=== PATIENT | male | born 1955 | race Caucasian/White ===

== ENCOUNTER → 2020-04-02 12:15 | Outpatient (CLI) | payer SELFPAY ==
[2020-04-02 13:51] LABS: Prostate Specific Antigen 9.28 ng/mL (0.10-4.00)
== END ==
PROVIDERS: PCP Family Medicine; Referring Provider Family Medicine; Visit Provider Family Medicine
DX: Z12.5 Encounter for screening for malignant neoplasm of prostate (principal)
CPT/HCPCS: 36415; 84153

== ENCOUNTER → 2020-06-04 10:56 | Outpatient (CLI) | payer SELFPAY ==
[2020-06-04 13:11] LABS: Prostate Specific Antigen 8.46 ng/mL (0.10-4.00)
== END ==
PROVIDERS: PCP Family Medicine; Referring Provider Physician Assistant; Visit Provider Physician Assistant
DX: R97.20 Elevated prostate specific antigen [PSA] (principal)
CPT/HCPCS: 36415; 84153

== ENCOUNTER → 2020-07-05 11:31 | Outpatient (CLI) | payer SELFPAY ==
[2020-07-05 13:18] LABS: Prostate Specific Antigen 7.52 ng/mL (0.10-4.00)
== END ==
PROVIDERS: PCP Family Medicine; Referring Provider Urology; Visit Provider Urology
DX: R97.20 Elevated prostate specific antigen [PSA] (principal)
CPT/HCPCS: 36415; 84153

== ENCOUNTER → 2020-08-01 10:35 | Outpatient (CLI) | payer SELFPAY ==
[2020-08-01 12:47] LABS: Prostate Specific Antigen 10.2 ng/mL (0.10-4.00)
== END ==
PROVIDERS: PCP Family Medicine; Referring Provider Urology; Visit Provider Urology
DX: R97.20 Elevated prostate specific antigen [PSA] (principal); N40.1 Benign prostatic hyperplasia with lower urinary tract symptoms
CPT/HCPCS: 36415; 84153

== ENCOUNTER → 2021-03-23 09:19 | Outpatient (CLI) | payer SELFPAY | PROVIDERS: PCP Family Medicine; Referring Provider Urology; Visit Provider Urology | DX: R97.20 Elevated prostate specific antigen [PSA] (principal) | CPT/HCPCS: 36415; 84153 ==

== ENCOUNTER 2021-08-11 14:18 | Emergency (ER) | payer SELFPAY ==
[2021-08-11 14:30] VITALS: BP 133/76; PULSE 93; RESP 18; TEMP 36.4; O2SAT 98; BMI 22.6
--- NOTE | 2021-08-11 17:53 | ED_ITS ---
HPI - Wound/Laceration <DARLYN Dawson - Last Filed: 08/11/21 20:48> General Chief Complaint: Wound/Laceration Stated Complaint: Left arm lac Time Seen by Provider: 08/11/21 16:53 Source: patient Mode of arrival: Ambulatory History of Present Illness HPI narrative: This is a 66-year-old male who states that he was helping a friend and on a 10 ft ladder when he fell off striking his left arm on the ground. Patient denies any head injury, loss of consciousness, pain in any other area on his body other than his left lateral forearm. Patient has a laceration which was bleeding pressure dressing came to the emergency department. He states his last tetanus vaccination was between 5 and 8 years ago, he declines wanting another tetanus vaccination today. Patient denies being on any anticoagulants, denies any vision changes, chest pain, shortness of breath pain in any other location on his body. He denies any significant medical conditions, denies any medication taken prior to arrival. Related Data Home Medications Medication Instructions Recorded Confirmed tamsulosin 0.4 mg capsule (Flomax) 0.4 mg PO DAILY 08/20/20 08/20/20 Previous Rx's Medication Instructions Recorded methocarbamol 500 mg tablet 500 mg PO BID PRN #20 tab 11/20/20 cephalexin 500 mg capsule 500 mg PO BID 5 Days #10 cap 08/11/21 methocarbamol 500 mg tablet 500 mg PO BEDTIME #10 tab 08/11/21 tramadol 50 mg tablet 50 mg PO DAILY PRN #10 tab 08/11/21 Allergies Allergy/AdvReac Type Severity Reaction Status Date / Time No Known Drug Allergies Allergy Verified 08/11/21 14:38 Review of Systems <DARLYN Dawson - Last Filed: 08/11/21 20:48> Review of Systems Narrative: General: denies fever, chills Head/Neck: denies headache, neck pain Eyes: denies visual changes, eye pain Cardio: denies chest pain, palpitations Respiratory: denies shortness of breath, cough GI: denies abdominal pain, nausea, vomiting, or diarrhea : denies dysuria, hematuria MSK: denies joint pain, muscle weakness Skin: denies rash, itching, laceration to lateral left forearm Neuro: denies numbness, tingling Patient History <DARLYN Dawson - Last Filed: 08/11/21 20:48> Medical History Acute exacerbation of chronic low back pain Surgical History Anesthesia Status post hernia repair (~1963) Family History Grandfather Brain tumor Social History marital status: household members: spouse lives independently: Yes caregiver/support person: No housing: house pets and animals: No education level: master's degree occupational status: employed current occupational exposures/hazards: No special theresa needs: No travel history: over 6 months ago leisure activities: exercise, hunting and fishing seatbelt use: always helmet use: Yes water heater temp set < 120 deg: Yes working smoke detector in home: Yes fire extinguisher in home: Yes carbon monox detector in home: Yes firearms in home: Yes firearms unloaded and locked: No do you feel safe at home: Yes Smoking Status: Never smoker second hand exposure: No alcohol intake: current substance use type: does not use during the past year weight has: remained stable well-balanced diet: daily or most days daily servings fruits/ve-4 caffeine: Yes eating out: 1-3 times/week Type(s) of exercise: walking and resistance training frequency: 5-6 times per week duration: 15-30 minutes/day Smoking Status: Never smoker alcohol intake frequency: a few times a week Substance Use Type: does not use Exam <DARLYN Dawson - Last Filed: 08/11/21 20:48> Narrative Exam Narrative: Independently reviewed vitals signs and nursing notes. General: Awake, alert, nontoxic, no cardiorespiratory distress Head/Neck: Atraumatic, neck full range of motion Eyes: EOMI, conjunctiva normal Nose: nares patent, no rhinorrhea Mouth/Throat: moist mucus membranes, no oral lesions Cardio: Regular rate and rhythm, no peripheral edema Respiratory: respirations unlabored without wheezing, stridor, or rales. No retractions. GI: Abdomen soft, nontender MSK: Moves all extremities, neurovascularly intact Skin: Normal capillary refill, no rash, left lateral forearm near his elbow has an approximate 2 cm laceration, this was irrigated with normal saline, thoroughly cleansed without any foreign debris. Structures beneath skin laceration appear intact without any laceration to muscle, tendon, or any other disruption below his skin. Bleeding is controlled with pressure otherwise slightly oozing slowly. Neuro: Normal speech and cognition, normal gait Initial Vital Signs Initial Vital Signs: Vital Signs Temperature 97.6 F 08/11/21 14:30 Pulse Rate 93 H 08/11/21 14:30 Respiratory Rate 18 08/11/21 14:30 Blood Pressure 133/76 08/11/21 14:30 Pulse Oximetry 98 08/11/21 14:30 <Loretta Jose DO - Last Filed: 08/15/21 02:40> Initial Vital Signs Initial Vital Signs: Vital Signs Temperature 97.6 F 08/11/21 14:30 Pulse Rate 93 H 08/11/21 14:30 Respiratory Rate 18 08/11/21 14:30 Blood Pressure 133/76 08/11/21 14:30 Pulse Oximetry 98 08/11/21 14:30 Procedures <DARLYN Dawson - Last Filed: 08/11/21 20:48> Laceration Repair Laceration 1: Side (If applicable): left Size (cm): 2 Description: linear Depth: simple, single layer Local Anesthetic: lidocaine 1% Amount of anesthesia used (mL): 3 Pre-repair: wound explored, irrigated extensively and deep structures intact Skin layer closed with: nylon Size (cm): 5-0 Number of sutures: 7 Technique: simple, interrupted Course <DARLYN Dawson - Last Filed: 08/11/21 20:48> Orders Ordered: Discontinued Medications Lidocaine/Sodium Bicarbonate (Lido 1%/Sod Bicarb 8.4% (10ml) 10 Ml Syringe) 10 ml INJ NOW ONE Stop: 08/11/21 16:54 Last Admin: 08/11/21 18:10 Dose: Not Given Documented by: NRHOADS Vital Signs Vital signs: Vital Signs - 8 hr 08/11/21 14:30 08/11/21 18:07 Temperature 97.6 F Pulse Rate 93 H 66 Respiratory Rate 18 16 Blood Pressure 133/76 155/84 H Pulse Oximetry 98 99 <Loretta Jose DO - Last Filed: 08/15/21 02:40> Orders Ordered: Discontinued Medications Lidocaine/Sodium Bicarbonate (Lido 1%/Sod Bicarb 8.4% (10ml) 10 Ml Syringe) 10 ml INJ NOW ONE Stop: 08/11/21 16:54 Last Admin: 08/11/21 18:10 Dose: Not Given Documented by: NRHOADS Vital Signs Vital signs: Vital Signs - 8 hr 08/11/21 14:30 08/11/21 18:07 Temperature 97.6 F Pulse Rate 93 H 66 Respiratory Rate 18 16 Blood Pressure 133/76 155/84 H Pulse Oximetry 98 99 [facility] - Wound/Laceration <DARLYN Dawson - Last Filed: 08/11/21 20:48> [facility] Narrative Medical decision making narrative: This is a 66-year-old male who presents to the emergency department for his left forearm laceration he sustained when he fell off of a ladder while he was helping a friend with some [employer] work. He states that he did not hit his head or hurt any other part of his body, he did not lose consciousness, have any nausea vomiting, he is not on anticoagulants, he has not had any vision changes or neurologic changes since his fall. He denies any sensation changes in his left arm, any wrist pain, elbow pain or shoulder pain. He has a 2 cm laceration which is linear, not contaminated with foreign debris, this was cleaned thoroughly with normal saline. Laceration repair with 5 0 Ethilon and 7 sutures was completed without any complications. Patient does not have any bleeding from site, this was dressed with a Band-Aid, bacitracin, and patient was instructed to follow-up with his primary care provider or go to the walk-in clinic for suture removal in 7 days. Patient was given a prescription for Keflex if he develops any signs and symptoms of infection including worsening pain, redness, swelling, or purulence drainage. Patient declined having a tetanus vaccination today, states his last 1 was between 5 and 8 years ago. Patient was recommended to have another tetanus vaccination within the next 2 years. Patient is appropriate and amenable to discharge home. Vital signs are stable on repeat examination is unremarkable. Patient has been informed of results. Patient has been given strict return to ER precautions for any new or worsening symptoms. Patient understands to follow up closely with outpatient providers as instructed. Patient understands plan and agrees to discharge home. All questions and concerns answered at this time. Discharge Plan Departure Patient Disposition: Home Clinical Impression: Laceration Fall Qualifiers: Encounter type: initial encounter Qualified Code(s): W19.XXXA - Unspecified fall, initial encounter Instructions: How to Care for a Laceration After Repair, DI for Laceration Repair Activity Restrictions/Additional Instructions: *You have been diagnosed with a laceration to your left arm, 7 nonabsorbable sutures were placed. Please keep this clean, covered with a Band-Aid and antibiotic ointment, and you may shower as usual morning and night. Please do not rubbed this or clean it aggressively, use a gentle soap if you use so. The skin around it is damage from the impact of the ground, this may be extra tender and have some mild swelling. If you notice any worsening redness, swelling or streaking up your arm, develop a fever, or feeling poorly, consider that this is a sign of infection, and please start taking the antibiotics. Please follow-up at the walk-in clinic, or Dr. Hall for suture removal in 7 days. Tetanus vaccinations are every 10 years, you stated that years was within the last 5 or 8, please remember to update this within the next 2 years. *What to do: *Please continue to take your regular medications as directed. [x ] New medication prescriptions sent to your pharmacy: [ [facility]] [ ] New medication written as a paper prescription [ ] No new medications given *Please follow up with your primary care provider in 2-3 days, call for an appo intment. Let them know you were seen in the Emergency Department and that we asked that you be seen for follow-up. We will electronically transmit a record of today's note if your PCP is in our system *If you do not have a primary care provider please contact [phone] to establish care with one of the [facility] primary care providers. *Return to Emergency Department if you should have any new, worsening or concerning symptoms, such as [fever greater than 101F, chills, worsening pain, persistent vomiting or other bothersome symptoms] Prescriptions: New methocarbamol 500 mg tablet 500 mg PO BEDTIME Qty: 10 0RF tramadol 50 mg tablet 50 mg PO DAILY PRN (Reason: pain) Qty: 10 0RF cephalexin 500 mg capsule 500 mg PO BID 5 Days Qty: 10 0RF No Action tamsulosin [Flomax] 0.4 mg capsule 0.4 mg PO DAILY 0RF methocarbamol 500 mg tablet 500 mg PO BID PRN (Reason: muscle pain) Qty: 20 0RF Referrals: Jessie Hall MD [Primary Care Provider] - <Loretta Jose DO - Last Filed: 08/15/21 02:40> Cosign ED Attending Cosignature Attestation: I was immediately available in the department for consultation. Documentation has been reviewed.
[2021-08-11 18:07] VITALS: BP 155/84; PULSE 66; RESP 16; O2SAT 99
[2021-08-11] MEDS: LIDOCAINE 1% (PF) 2 ML (18:11)
== END 2021-08-11 18:08 | disposition home or self-care (01) ==
PROVIDERS: Emergency Provider Nurse Practitioner Critical Care Medicine; PCP Family Medicine
DX: S51.812A Laceration without foreign body of left forearm, initial encounter (principal); W11.XXXA Fall on and from ladder, initial encounter
CPT/HCPCS: 12001; 99282; 99283

== ENCOUNTER → 2021-10-26 12:10 | Outpatient (CLI) | payer SELFPAY ==
[2021-10-27 07:38] LABS: PSA Free % 17.3 % (.); PSA, Total 9.1 ng/mL (0.0-4.0)
== END ==
PROVIDERS: PCP Family Medicine; Referring Provider Urology; Visit Provider Urology
DX: R97.20 Elevated prostate specific antigen [PSA] (principal)
CPT/HCPCS: 36415; 84153; 84154

== ENCOUNTER → 2022-10-27 07:09 | Outpatient (CLI) | payer MEDICARE, SELFPAY ==
[2022-10-27 09:50] LABS: Cholesterol 217 mg/dL (140-199); Glucose 89 mg/dL (80-110); HDL Cholesterol 50 mg/dL (40-60); LDL Cholesterol Calculated 149 mg/dL (<100); Triglycerides 90 mg/dL (35-150)
[2022-11-02 07:36] LABS: Percent Free Testosterone 2.49 % (1.50-4.20); Testosterone Free 9.27 ng/dL (5.00-21.00); Testosterone Total 372.4 ng/dL (264.0-916.0)
== END ==
PROVIDERS: PCP Family Medicine; Referring Provider Family Medicine; Visit Provider Family Medicine
DX: Z13.1 Encounter for screening for diabetes mellitus (principal); Z00.00 Encounter for general adult medical examination without abnormal findings; Z13.220 Encounter for screening for lipoid disorders; R53.83 Other fatigue
CPT/HCPCS: 36415; 80061; 82947; 84402; 84403; 87522

== ENCOUNTER → 2022-10-28 10:44 | Outpatient (CLI) | payer MEDICARE, SELFPAY ==
[2022-10-29 15:08] LABS: Fecal Immunochemical Test Negative (Negative)
== END ==
PROVIDERS: PCP Family Medicine; Referring Provider Family Medicine; Visit Provider Family Medicine
DX: Z12.11 Encounter for screening for malignant neoplasm of colon (principal)
CPT/HCPCS: 82274

== ENCOUNTER 2023-07-28 11:15 | Outpatient (RCR) | payer MEDICARE, OTHER, SELFPAY ==
--- NOTE | 2023-03-02 12:20 | PT.OPPOC ---
Physical, Occupational & Speech Therapy At [facility] Current Diagnoses Pain in unspecified shoulder (03/02/23) Visit Care Team Role Provider Type Jessie Hall MD Attending Provider Physician Family Provider Primary Care Provider Referring Provider Specialty: Family Practice Address: [address] [place] [address], [id number] Email: [email or web address] Plan Of Care PT-OP-T Assessment and Plan Start: 03/02/23 11:26 Freq: Status: Active Protocol: Document 03/02/23 12:20 AM (Rec: 03/02/23 18:03 AM [id number]) Physical Therapy Assessment Rehab Potential Rehabilitation Potential Excellent Evaluation Complexity Number of Personal Factors/Comorbidities 1-2 Number of Body Systems Impaired 1-2 Impairments Impairments Activity Tolerance,Functional Activities,Functional Mobility ,Pain,Posture,ROM,Sensation, Soft Tissue Mobility,Strength Goals Scapular strength Impairment Pt with scapular strength of 3 -/5 LT and 3+/5 MT strength Short Term Goal (STG) Pt with 3+/5 lower trap strength, 4-/5 middle trap strength STG Duration 03/23/23 Intermediate Goal (LTG) Pt with 4/5 middle trap and lower trap strength LTG Duration 04/13/23 Quick Dash Impairment Pt with Quick Dash score of 20 % Intermediate Goal (LTG) Pt with Quick Dash score of 10 % LTG Duration 04/13/23 HEP Speech And Hearing Director Goal (LTG) Pt independent with HEP. LTG Duration 04/13/23 [place] Impairment Pt unable to use bow without increase in shoulder pain. Speech And Hearing Director Goal (LTG) Pt able to use bow with proper scapulohumeral mechanics without production of increased pain. LTG Duration 04/13/23 Assessment Summary Assessment Sandip Kirkpatrick presents to PT to address R shoulder pain. Pt demonstrates good shoulder ROM, except for some limitations in horizontal adduction and IR. Pt demonstrates stiffness at posterior capsule, which improved with joint assessment of A-P GHJ mobs. Pt demonstrates difficulty with scapular stabilization in prone exercises, particularly with assessment of LT. Pt demonstrates good shoulder strength, with pain during shoulder flexion only. Pt would benefit from continued PT to improve scapulohumeral rhythm, to improve tolerance to recreational/functional tasks. Physical Therapy Plan Frequency and Duration Frequency of Treatment 2x/Week Duration of treatment (weeks) 6 Plan of Care Start Date 03/02/23 Plan of Care End Date 04/13/23 Therapeutic Interventions Therapeutic Interventions Coordination Training,Home Exercise Program,Joint Mobilizations,Manual Therapy, Neuromuscular Re-education, Patient/Caregiver Education, Self-Care/Home Management,Soft Tissue Mobilization,Taping, Therapeutic Activities, Therapeutic Exercises Modalities Cold Pack/Ice Massage,Electric Stimulation,Hot Packs, Ultrasound Next Visit Focus/Plan Next Note Type Treatment Note Next Visit Plan Assess bow hunting motion for scapular control, progress scapular stabilization strength Plan of Care Dates Plan of Care Start Date 03/02/23 Plan of Care End Date 04/13/23 Electronically Signed by: Yoli Mcnally, PT 03/03/23 [id number] If you are in agreement with this Plan of Care, please return a signed and dated copy. I have reviewed this Plan of Care and certify that the skilled therapy services above are required to meet the patient?s needs. Physician Signature Date Printed Name and Credentials Clinical Instructor Signature Printed Name and Credentials
--- NOTE | 2023-03-02 12:20 | PT.OIE ---
Current Diagnoses Pain in unspecified shoulder (03/02/23) Past Surgical History (Last Reviewed 08/11/21 @ 20:44 by Letty Ortiz COLD ROLL CATCHER) Anesthesia Status post hernia repair (~1962) Visit Care Team Role Provider Type Jessie Hall MD Attending Provider Physician Family Provider Primary Care Provider Referring Provider Specialty: Family Practice Address: [address] [place] [address], [id number] Email: [email or web address] Physical Therapy Initial Evaluation PT-OP-A Visit Information Start: 03/02/23 11:26 Freq: Status: Active Protocol: Document 03/02/23 12:20 AM (Rec: 03/02/23 18:03 AM [id number]) Out-Patient Physical Therapy Visit Information Visit Information Visit Type Initial Evaluation Visit Start Time 12:20 Visit Stop Time 13:03 Total Visit Minutes 43 Visit Number 1 Evaluation Information Evaluation Date 03/02/23 PT-OP-B Current Condition Start: 03/02/23 11:26 Freq: Status: Active Protocol: Document 03/02/23 12:20 AM (Rec: 03/02/23 18:03 AM [id number]) Current Condition History of Current Condition Onset Date 30 years ago Current Complaints R shoulder History of Current Condition Pt thinks that he tore something in his shoulder 30 years ago and never fixed it. Pt reports that he fell on his R shoulder about a year ago and it has been painful since. Pt reports that his shoulder feels weak. Pt reports that he has an independent gym program, but not sure what to do to progress his shoulder strength and mobility without increasing pain. Pt likes to bow chen, though has difficulty using his bow currently. Prior Treatments and Tests Pt had an x-ray a few years ago, pt unsure of results Prior Functional Status Baseline Function- ADL's Independent Baseline Function- Mobility Independent Current Functional Impairments (Reported) Functional Limitations- ADL's Anything above 90 degrees flexion, reaching behind back Functional Limitations- Recreation/ Pt unable to shoot a bow Hobbies properly Functional Limitations- Other Pt unable to sleep on R side secondary to pain. PT-OP-C Subjective Start: 03/02/23 11:26 Freq: Status: Active Protocol: Document 03/02/23 12:20 AM (Rec: 03/02/23 18:03 AM [id number]) Patient Questionnaires Quick Dash- Upper Extremity Quick Dash UE Score 20 Quick Dash UE Impairment 20 to 39% Impaired (Score 20- 39) OP-PT Pain Assessment Pain Assessment Grid Paper Pain Assessment Grid Completed Yes Location Right Shoulder Pain Location Details R superior shoulder, anterior upper arm Intensity 0 Scale Used Numeric (0 - 10) Description Aching,With Movement Description- Other Pt reports pain at 4/10 at worst. Frequency Daily Pain Aggravating Factors Position,ADL's,Activity, Lifting Pain Alleviating Factors Cold,Heat,Medication Other Pain Alleviating Factors ibuprofen PT-OP-K Range of Motion Start: 03/02/23 11:26 Freq: Status: Active Protocol: Document 03/02/23 12:20 AM (Rec: 03/02/23 18:03 AM [id number]) Shoulder Goniometric Range of Motion Shoulder Right Active Flexion 140 Abduction 155 Internal Rotation Behind Back (text) L1 Comments Aply ER: T1 Left Active Flexion 145 Abduction 155 Internal Rotation Behind Back (text) T9 Comments Aply ER: T5 PT-OP-L Special Tests Start: 03/02/23 11:26 Freq: Status: Active Protocol: Document 03/02/23 12:20 AM (Rec: 03/02/23 18:03 AM [id number]) Special Tests Shoulder Special Tests IR/Horizontal ADD Impingement Test Results + Empty Can Test Results negative on R PT-OP-M Strength Start: 03/02/23 11:26 Freq: Status: Active Protocol: Document 03/02/23 12:20 AM (Rec: 03/03/23 10:29 AM [id number]) Scapula Strength Scapula Manual Muscle Testing Right Comments Mid trap: 3+/5, cues to decrease UT involvement Low trap: 3-/5 PT-OP-Q Treatments Start: 03/02/23 11:26 Freq: Status: Active Protocol: Document 03/02/23 12:20 AM (Rec: 03/02/23 18:03 AM [id number]) Therapeutic Exercises Prone Exercises Low trap Side right Reps/Minutes x5 Comments poor scapulohumeral rhythm with max manual cues Shoulder extension Side right Reps/Minutes 2x10 Mid Trap Reps/Minutes x10 Sidelying Exercises ER Side right Equipment Used towel at elbow Reps/Minutes x10 Comments cues for scap stab Standing Exercises Wall slide Standing Exercise Name wall slide Side right Reps/Minutes x5 Comments pain with return, even with man scap assist and cues for SA on return Keith ER Side bilateral Resistance OTB Reps/Minutes x10 PT-OP-T Assessment and Plan Start: 03/02/23 11:26 Freq: Status: Active Protocol: Document 03/02/23 12:20 AM (Rec: 03/02/23 18:03 AM [id number]) Physical Therapy Assessment Rehab Potential Rehabilitation Potential Excellent Evaluation Complexity Number of Personal Factors/Comorbidities 1-2 Number of Body Systems Impaired 1-2 Impairments Impairments Activity Tolerance,Functional Activities,Functional Mobility ,Pain,Posture,ROM,Sensation, Soft Tissue Mobility,Strength Goals Scapular strength Impairment Pt with scapular strength of 3 -/5 LT and 3+/5 MT strength Short Term Goal (STG) Pt with 3+/5 lower trap strength, 4-/5 middle trap strength STG Duration 03/23/23 Residential Goal (LTG) Pt with 4/5 middle trap and lower trap strength LTG Duration 04/13/23 Quick Dash Impairment Pt with Quick Dash score of 20 % Residential Goal (LTG) Pt with Quick Dash score of 10 % LTG Duration 04/13/23 HEP Owner/Photographer Goal (LTG) Pt independent with HEP. LTG Duration 04/13/23 [place] Impairment Pt unable to use bow without increase in shoulder pain. Owner/Photographer Goal (LTG) Pt able to use bow with proper scapulohumeral mechanics without production of increased pain. LTG Duration 04/13/23 Assessment Summary Assessment Sandip Kirkpatrick presents to PT to address R shoulder pain. Pt demonstrates good shoulder ROM, except for some limitations in horizontal adduction and IR. Pt demonstrates stiffness at posterior capsule, which improved with joint assessment of A-P GHJ mobs. Pt demonstrates difficulty with scapular stabilization in prone exercises, particularly with assessment of LT. Pt demonstrates good shoulder strength, with pain during shoulder flexion only. Pt would benefit from continued PT to improve scapulohumeral rhythm, to improve tolerance to recreational/functional tasks. Physical Therapy Plan Frequency and Duration Frequency of Treatment 2x/Week Duration of treatment (weeks) 6 Plan of Care Start Date 03/02/23 Plan of Care End Date 04/13/23 Therapeutic Interventions Therapeutic Interventions Coordination Training,Home Exercise Program,Joint Mobilizations,Manual Therapy, Neuromuscular Re-education, Patient/Caregiver Education, Self-Care/Home Management,Soft Tissue Mobilization,Taping, Therapeutic Activities, Therapeutic Exercises Modalities Cold Pack/Ice Massage,Electric Stimulation,Hot Packs, Ultrasound Next Visit Focus/Plan Next Note Type Treatment Note Next Visit Plan Assess bow hunting motion for scapular control, progress scapular stabilization strength
--- NOTE | 2023-03-07 09:49 | PT.OTN ---
Current Diagnoses Pain in unspecified shoulder (03/07/23) Physical Therapy Treatment Note PT-OP-A Visit Information Start: 03/02/23 11:26 Freq: Status: Active Protocol: Document 03/07/23 09:49 AM (Rec: 03/07/23 11:31 AM [id number]) Out-Patient Physical Therapy Visit Information Visit Information Visit Type Treatment Note Visit Start Time 09:49 Visit Stop Time 10:31 Total Visit Minutes 42 Visit Number 2 PT-OP-B Current Condition Start: 03/02/23 11:26 Freq: Status: Active Protocol: Document 03/07/23 09:49 AM (Rec: 03/07/23 11:31 AM [id number]) Current Condition History of Current Condition Onset Date 30 years ago Current Complaints R shoulder History of Current Condition Pt thinks that he tore something in his shoulder 30 years ago and never fixed it. Pt reports that he fell on his R shoulder about a year ago and it has been painful since. Pt reports that his shoulder feels weak. Pt reports that he has an independent gym program, but not sure what to do to progress his shoulder strength and mobility without increasing pain. Pt likes to bow chen, though has difficulty using his bow currently. Prior Treatments and Tests Pt had an x-ray a few years ago, pt unsure of results PT-OP-C Subjective Start: 03/02/23 11:26 Freq: Status: Active Protocol: Document 03/02/23 12:20 AM (Rec: 03/02/23 18:03 AM [id number]) Patient Questionnaires Quick Dash- Upper Extremity Quick Dash UE Score 20 Quick Dash UE Impairment 20 to 39% Impaired (Score 20- 39) OP-PT Pain Assessment Pain Assessment Grid Paper Pain Assessment Grid Completed Yes Location Right Shoulder Pain Location Details R superior shoulder, anterior upper arm Intensity 0 Scale Used Numeric (0 - 10) Description Aching,With Movement Description- Other Pt reports pain at 4/10 at worst. Frequency Daily Pain Aggravating Factors Position,ADL's,Activity, Lifting Pain Alleviating Factors Cold,Heat,Medication Other Pain Alleviating Factors ibuprofen PT-OP-K Range of Motion Start: 03/02/23 11:26 Freq: Status: Active Protocol: Document 03/02/23 12:20 AM (Rec: 03/02/23 18:03 AM [id number]) Shoulder Goniometric Range of Motion Shoulder Right Active Flexion 140 Abduction 155 Internal Rotation Behind Back (text) L1 Comments Aply ER: T1 Left Active Flexion 145 Abduction 155 Internal Rotation Behind Back (text) T9 Comments Aply ER: T5 PT-OP-L Special Tests Start: 03/02/23 11:26 Freq: Status: Active Protocol: Document 03/02/23 12:20 AM (Rec: 03/02/23 18:03 AM [id number]) Special Tests Shoulder Special Tests IR/Horizontal ADD Impingement Test Results + Empty Can Test Results negative on R PT-OP-M Strength Start: 03/02/23 11:26 Freq: Status: Active Protocol: Document 03/02/23 12:20 AM (Rec: 03/03/23 10:29 AM [id number]) Scapula Strength Scapula Manual Muscle Testing Right Comments Mid trap: 3+/5, cues to decrease UT involvement Low trap: 3-/5 PT-OP-Q Treatments Start: 03/02/23 11:26 Freq: Status: Active Protocol: Document 03/07/23 09:49 AM (Rec: 03/07/23 11:31 AM [id number]) Therapeutic Exercises Supine Exercises Serratus punch Resistance 0-2# Reps/Minutes 2x10 Prone Exercises Shoulder extension Side right Resistance 0-2# Reps/Minutes 2x10 Comments on ball serjio UE and on table Mid Trap Equipment Used on orange [place] ball Reps/Minutes x10 Comments cues for decreased UT involvement Sidelying Exercises Flexion Side right Resistance 0-2# Reps/Minutes 2x10 Abduction Side right Resistance 0-2# Reps/Minutes 2x10 ER Side right Resistance 0-2# Equipment Used towel at elbow Reps/Minutes x10 Comments cues for scap stab Standing Exercises Wall slide Standing Exercise Name wall slide Side right Reps/Minutes x5 Comments No pain, only stiffness reported today Manual Therapy Treatment Soft Tissue Mobilization Scapular muscles Body Location R periscapular muscles, posterior deltoid Mobilization Type Myofascial Release,Trigger Point Release Intensity/Depth Moderate Body Position Sidelying Joint Mobilizations GHJ Joint S-I and A-P Grade III Body Position Supine Manual Techniques PROM Type R shoulder PROM, all directions PT-OP-T Assessment and Plan Start: 03/02/23 11:26 Freq: Status: Active Protocol: Document 03/07/23 09:49 AM (Rec: 03/07/23 11:31 AM [id number]) Physical Therapy Assessment Goals Scapular strength Impairment Pt with scapular strength of 3 -/5 LT and 3+/5 MT strength Short Term Goal (STG) Pt with 3+/5 lower trap strength, 4-/5 middle trap strength STG Duration 03/23/23 [place] Goal (LTG) Pt with 4/5 middle trap and lower trap strength LTG Duration 04/13/23 Quick Dash Impairment Pt with Quick Dash score of 20 % [facility] Goal (LTG) Pt with Quick Dash score of 10 % LTG Duration 04/13/23 HEP [place] Goal (LTG) Pt independent with HEP. LTG Duration 04/13/23 [place] Impairment Pt unable to use bow without increase in shoulder pain. [place] Goal (LTG) Pt able to use bow with proper scapulohumeral mechanics without production of increased pain. LTG Duration 04/13/23 Assessment Summary Assessment Pt tolerated PRE well today. Pt requires cueing for scapular control and decrease UT involvement with scapular training. Pt with tenderness along posterior deltoid and scapular muscles with STM. Pt with improved tolerance to wall slide today, without production of pain. Pt would benefit from continued PT to progress shoulder strength and improve scapulohumeral rhythm . Physical Therapy Plan Frequency and Duration Frequency of Treatment 2x/Week Duration of treatment (weeks) 6 Plan of Care Start Date 03/02/23 Plan of Care End Date 04/13/23 Therapeutic Interventions Therapeutic Interventions Coordination Training,Home Exercise Program,Joint Mobilizations,Manual Therapy, Neuromuscular Re-education, Patient/Caregiver Education, Self-Care/Home Management,Soft Tissue Mobilization,Taping, Therapeutic Activities, Therapeutic Exercises Modalities Cold Pack/Ice Massage,Electric Stimulation,Hot Packs, Ultrasound Next Visit Focus/Plan Next Note Type Treatment Note Next Visit Plan Assess bow hunting motion for scapular control, progress scapular stabilization strength
--- NOTE | 2023-03-07 09:49 | PT.OTN ---
Current Diagnoses Pain in unspecified shoulder (03/07/23) Physical Therapy Treatment Note PT-OP-A Visit Information Start: 03/02/23 11:26 Freq: Status: Active Protocol: Document 03/07/23 09:49 AM (Rec: 03/07/23 11:31 AM [id number]) Out-Patient Physical Therapy Visit Information Visit Information Visit Type Treatment Note Visit Start Time 09:49 Visit Stop Time 10:31 Total Visit Minutes 42 Visit Number 2 PT-OP-B Current Condition Start: 03/02/23 11:26 Freq: Status: Active Protocol: Document 03/07/23 09:49 AM (Rec: 03/07/23 11:31 AM [id number]) Current Condition History of Current Condition Onset Date 30 years ago Current Complaints R shoulder History of Current Condition Pt thinks that he tore something in his shoulder 30 years ago and never fixed it. Pt reports that he fell on his R shoulder about a year ago and it has been painful since. Pt reports that his shoulder feels weak. Pt reports that he has an independent gym program, but not sure what to do to progress his shoulder strength and mobility without increasing pain. Pt likes to bow chen, though has difficulty using his bow currently. Prior Treatments and Tests Pt had an x-ray a few years ago, pt unsure of results PT-OP-C Subjective Start: 03/02/23 11:26 Freq: Status: Active Protocol: Document 03/07/23 09:49 AM (Rec: 03/07/23 11:32 AM [id number]) OP-PT Subjective Patient Comments Patient Comments Pt reports good compliance with HEP. Pt reports that he would like to start doing more in the gym with his R UE. PT-OP-K Range of Motion Start: 03/02/23 11:26 Freq: Status: Active Protocol: Document 03/02/23 12:20 AM (Rec: 03/02/23 18:03 AM [id number]) Shoulder Goniometric Range of Motion Shoulder Right Active Flexion 140 Abduction 155 Internal Rotation Behind Back (text) L1 Comments Aply ER: T1 Left Active Flexion 145 Abduction 155 Internal Rotation Behind Back (text) T9 Comments Aply ER: T5 PT-OP-L Special Tests Start: 03/02/23 11:26 Freq: Status: Active Protocol: Document 03/02/23 12:20 AM (Rec: 03/02/23 18:03 AM [id number]) Special Tests Shoulder Special Tests IR/Horizontal ADD Impingement Test Results + Empty Can Test Results negative on R PT-OP-M Strength Start: 03/02/23 11:26 Freq: Status: Active Protocol: Document 03/02/23 12:20 AM (Rec: 03/03/23 10:29 AM [id number]) Scapula Strength Scapula Manual Muscle Testing Right Comments Mid trap: 3+/5, cues to decrease UT involvement Low trap: 3-/5 PT-OP-Q Treatments Start: 03/02/23 11:26 Freq: Status: Active Protocol: Document 03/07/23 09:49 AM (Rec: 03/07/23 11:31 AM [id number]) Therapeutic Exercises Supine Exercises Serratus punch Resistance 0-2# Reps/Minutes 2x10 Prone Exercises Shoulder extension Side right Resistance 0-2# Reps/Minutes 2x10 Comments on ball serjio UE and on table Mid Trap Equipment Used on orange [place] ball Reps/Minutes x10 Comments cues for decreased UT involvement Sidelying Exercises Flexion Side right Resistance 0-2# Reps/Minutes 2x10 Abduction Side right Resistance 0-2# Reps/Minutes 2x10 ER Side right Resistance 0-2# Equipment Used towel at elbow Reps/Minutes x10 Comments cues for scap stab Standing Exercises Wall slide Standing Exercise Name wall slide Side right Reps/Minutes x5 Comments No pain, only stiffness reported today Manual Therapy Treatment Soft Tissue Mobilization Scapular muscles Body Location R periscapular muscles, posterior deltoid Mobilization Type Myofascial Release,Trigger Point Release Intensity/Depth Moderate Body Position Sidelying Joint Mobilizations GHJ Joint S-I and A-P Grade III Body Position Supine Manual Techniques PROM Type R shoulder PROM, all directions PT-OP-T Assessment and Plan Start: 03/02/23 11:26 Freq: Status: Active Protocol: Document 03/07/23 09:49 AM (Rec: 03/07/23 11:31 AM [id number]) Physical Therapy Assessment Goals Scapular strength Impairment Pt with scapular strength of 3 -/5 LT and 3+/5 MT strength Short Term Goal (STG) Pt with 3+/5 lower trap strength, 4-/5 middle trap strength STG Duration 03/23/23 [place] Goal (LTG) Pt with 4/5 middle trap and lower trap strength LTG Duration 04/13/23 Quick Dash Impairment Pt with Quick Dash score of 20 % Income Tax Adjuster Goal (LTG) Pt with Quick Dash score of 10 % LTG Duration 04/13/23 HEP [place] Goal (LTG) Pt independent with HEP. LTG Duration 04/13/23 [place] Impairment Pt unable to use bow without increase in shoulder pain. Correction Goal (LTG) Pt able to use bow with proper scapulohumeral mechanics without production of increased pain. LTG Duration 04/13/23 Assessment Summary Assessment Pt tolerated PRE well today. Pt requires cueing for scapular control and decrease UT involvement with scapular training. Pt with tenderness along posterior deltoid and scapular muscles with STM. Pt with improved tolerance to wall slide today, without production of pain. Pt would benefit from continued PT to progress shoulder strength and improve scapulohumeral rhythm . Physical Therapy Plan Frequency and Duration Frequency of Treatment 2x/Week Duration of treatment (weeks) 6 Plan of Care Start Date 03/02/23 Plan of Care End Date 04/13/23 Therapeutic Interventions Therapeutic Interventions Coordination Training,Home Exercise Program,Joint Mobilizations,Manual Therapy, Neuromuscular Re-education, Patient/Caregiver Education, Self-Care/Home Management,Soft Tissue Mobilization,Taping, Therapeutic Activities, Therapeutic Exercises Modalities Cold Pack/Ice Massage,Electric Stimulation,Hot Packs, Ultrasound Next Visit Focus/Plan Next Note Type Treatment Note Next Visit Plan Assess bow hunting motion for scapular control, progress scapular stabilization strength
--- NOTE | 2023-03-10 09:50 | PT.OTN ---
Current Diagnoses Pain in unspecified shoulder (03/10/23) Physical Therapy Treatment Note PT-OP-A Visit Information Start: 03/02/23 11:26 Freq: Status: Active Protocol: Document 03/10/23 09:50 AM (Rec: 03/10/23 13:29 AM [id number]) Out-Patient Physical Therapy Visit Information Visit Information Visit Type Treatment Note Visit Start Time 09:52 Visit Stop Time 10:36 Total Visit Minutes 44 Visit Number 3 PT-OP-B Current Condition Start: 03/02/23 11:26 Freq: Status: Active Protocol: Document 03/07/23 09:49 AM (Rec: 03/07/23 11:31 AM [id number]) Current Condition History of Current Condition Onset Date 30 years ago Current Complaints R shoulder History of Current Condition Pt thinks that he tore something in his shoulder 30 years ago and never fixed it. Pt reports that he fell on his R shoulder about a year ago and it has been painful since. Pt reports that his shoulder feels weak. Pt reports that he has an independent gym program, but not sure what to do to progress his shoulder strength and mobility without increasing pain. Pt likes to bow chen, though has difficulty using his bow currently. Prior Treatments and Tests Pt had an x-ray a few years ago, pt unsure of results PT-OP-C Subjective Start: 03/02/23 11:26 Freq: Status: Active Protocol: Document 03/10/23 09:50 AM (Rec: 03/10/23 13:29 AM [id number]) OP-PT Subjective Patient Comments Patient Comments Pt reports good compliance with his exercises and reports that they seem to help. Pt reports that he feels that he has been able to sleep on R side more lately. PT-OP-K Range of Motion Start: 03/02/23 11:26 Freq: Status: Active Protocol: Document 03/02/23 12:20 AM (Rec: 03/02/23 18:03 AM [id number]) Shoulder Goniometric Range of Motion Shoulder Right Active Flexion 140 Abduction 155 Internal Rotation Behind Back (text) L1 Comments Aply ER: T1 Left Active Flexion 145 Abduction 155 Internal Rotation Behind Back (text) T9 Comments Aply ER: T5 PT-OP-L Special Tests Start: 03/02/23 11:26 Freq: Status: Active Protocol: Document 03/02/23 12:20 AM (Rec: 03/02/23 18:03 AM [id number]) Special Tests Shoulder Special Tests IR/Horizontal ADD Impingement Test Results + Empty Can Test Results negative on R PT-OP-M Strength Start: 03/02/23 11:26 Freq: Status: Active Protocol: Document 03/02/23 12:20 AM (Rec: 03/03/23 10:29 AM [id number]) Scapula Strength Scapula Manual Muscle Testing Right Comments Mid trap: 3+/5, cues to decrease UT involvement Low trap: 3-/5 PT-OP-Q Treatments Start: 03/02/23 11:26 Freq: Status: Active Protocol: Document 03/10/23 09:50 AM (Rec: 03/10/23 13:29 AM [id number]) Cardio Equipment Upper Body Ergometer (UBE) Duration (Minutes) 5 RPM 60 Therapeutic Exercises Sidelying Exercises Flexion Side right Resistance 2# Reps/Minutes 2x10 Abduction Side right Resistance 2-3# Reps/Minutes 2x10 ER Side right Resistance 2 Equipment Used towel at elbow Reps/Minutes 2x10 Comments cues for scap stab Standing Exercises Shoulder extension Resistance GTB Reps/Minutes 2x10 Comments tactile cueing for scapular control Standing row Resistance GTB and 2 on cable machine Reps/Minutes 2x10 ea Comments cues for scapular control and LT Shoulder IR Side right Resistance [place] TB Equipment Used towel Reps/Minutes x10 Comments cues for LT and scapular control Shoulder ER Side right Resistance [place] TB Equipment Used towel Reps/Minutes x10 Comments cues for LT and scapular control Wall slide Standing Exercise Name wall slide Side right Reps/Minutes x5 Comments No pain, only stiffness reported today Manual Therapy Treatment Soft Tissue Mobilization Scapular muscles Body Location R periscapular muscles, posterior deltoid Mobilization Type Myofascial Release,Trigger Point Release Intensity/Depth Moderate Body Position Sidelying Joint Mobilizations GHJ Joint S-I and A-P Grade III Body Position Supine Manual Techniques PROM Type R shoulder PROM, abd and flex PT-OP-T Assessment and Plan Start: 03/02/23 11:26 Freq: Status: Active Protocol: Document 03/10/23 09:50 AM (Rec: 03/10/23 13:29 AM [id number]) Physical Therapy Assessment Goals Scapular strength Impairment Pt with scapular strength of 3 -/5 LT and 3+/5 MT strength Short Term Goal (STG) Pt with 3+/5 lower trap strength, 4-/5 middle trap strength STG Duration 03/23/23 [facility] Goal (LTG) Pt with 4/5 middle trap and lower trap strength LTG Duration 04/13/23 [place] Impairment Pt with Quick Dash score of 20 % [employer]k Screen Painter Goal (LTG) Pt with Quick Dash score of 10 % LTG Duration 04/13/23 HEP [employer]ter Goal (LTG) Pt independent with HEP. LTG Duration 04/13/23 [place] Impairment Pt unable to use bow without increase in shoulder pain. [facility] Goal (LTG) Pt able to use bow with proper scapulohumeral mechanics without production of increased pain. LTG Duration 04/13/23 Assessment Summary Assessment Pt requires tactile and manual cueing for scapular control with all exercises. Pt demonstrates anterior glide of humerus, requiring cueing. Pt fatigued with rotator cuff strengthening today. Pt demonstrates continued tenderness along posterior deltoids and scapular muscles with STM. Pt would benefit from continued PT to progress shoulder mobility and strength as tolerated. Physical Therapy Plan Frequency and Duration Frequency of Treatment 2x/Week Duration of treatment (weeks) 6 Plan of Care Start Date 03/02/23 Plan of Care End Date 04/13/23 Therapeutic Interventions Therapeutic Interventions Coordination Training,Home Exercise Program,Joint Mobilizations,Manual Therapy, Neuromuscular Re-education, Patient/Caregiver Education, Self-Care/Home Management,Soft Tissue Mobilization,Taping, Therapeutic Activities, Therapeutic Exercises Modalities Cold Pack/Ice Massage,Electric Stimulation,Hot Packs, Ultrasound Next Visit Focus/Plan Next Note Type Treatment Note Next Visit Plan progress rotator cuff strength , progress scapular stabilization strength
--- NOTE | 2023-03-14 09:50 | PT.OTN ---
Current Diagnoses Pain in unspecified shoulder (03/14/23) Physical Therapy Treatment Note PT-OP-A Visit Information Start: 03/02/23 11:26 Freq: Status: Active Protocol: Document 03/14/23 09:50 AM (Rec: 03/14/23 12:24 AM [id number]) Out-Patient Physical Therapy Visit Information Visit Information Visit Type Treatment Note Visit Start Time 09:50 Visit Stop Time 10:35 Total Visit Minutes 45 Visit Number 4 PT-OP-B Current Condition Start: 03/02/23 11:26 Freq: Status: Active Protocol: Document 03/07/23 09:49 AM (Rec: 03/07/23 11:31 AM [id number]) Current Condition History of Current Condition Onset Date 30 years ago Current Complaints R shoulder History of Current Condition Pt thinks that he tore something in his shoulder 30 years ago and never fixed it. Pt reports that he fell on his R shoulder about a year ago and it has been painful since. Pt reports that his shoulder feels weak. Pt reports that he has an independent gym program, but not sure what to do to progress his shoulder strength and mobility without increasing pain. Pt likes to bow chen, though has difficulty using his bow currently. Prior Treatments and Tests Pt had an x-ray a few years ago, pt unsure of results PT-OP-C Subjective Start: 03/02/23 11:26 Freq: Status: Active Protocol: Document 03/14/23 09:50 AM (Rec: 03/14/23 12:24 AM [id number]) OP-PT Subjective Patient Comments Patient Comments Pt reports good compliance with exercises. Pt reports that the prone mid trap exercise has been a little uncomfortable. PT-OP-K Range of Motion Start: 03/02/23 11:26 Freq: Status: Active Protocol: Document 03/02/23 12:20 AM (Rec: 03/02/23 18:03 AM [id number]) Shoulder Goniometric Range of Motion Shoulder Right Active Flexion 140 Abduction 155 Internal Rotation Behind Back (text) L1 Comments Aply ER: T1 Left Active Flexion 145 Abduction 155 Internal Rotation Behind Back (text) T9 Comments Aply ER: T5 PT-OP-L Special Tests Start: 03/02/23 11:26 Freq: Status: Active Protocol: Document 03/02/23 12:20 AM (Rec: 03/02/23 18:03 AM [id number]) Special Tests Shoulder Special Tests IR/Horizontal ADD Impingement Test Results + Empty Can Test Results negative on R PT-OP-M Strength Start: 03/02/23 11:26 Freq: Status: Active Protocol: Document 03/02/23 12:20 AM (Rec: 03/03/23 10:29 AM [id number]) Scapula Strength Scapula Manual Muscle Testing Right Comments Mid trap: 3+/5, cues to decrease UT involvement Low trap: 3-/5 PT-OP-Q Treatments Start: 03/02/23 11:26 Freq: Status: Active Protocol: Document 03/14/23 09:50 AM (Rec: 03/14/23 12:24 AM [id number]) Cardio Equipment Upper Body Ergometer (UBE) Duration (Minutes) 5 RPM 60 Therapeutic Exercises Prone Exercises Mid Trap Equipment Used on orange [place] ball Reps/Minutes x10 Comments cues for decreased UT involvement Sidelying Exercises Flexion Side right Resistance 2# Reps/Minutes 2x10 Abduction Side right Resistance 3 Reps/Minutes 2x10 ER Side right Resistance 2 Equipment Used towel at elbow Reps/Minutes 2x10 Comments cues for scap stab Standing Exercises [place] stretch Standing Exercise Name [place] stretch Reps/Minutes x30 sec Comments added to HEP Shoulder extension Resistance GTB Reps/Minutes x Comments 20 Standing row Resistance GTB also 2 on cable machine in bow motion Reps/Minutes 2x10 ea Comments cues for scapular control and LT Shoulder IR Side right Resistance OTB Equipment Used towel Reps/Minutes 2x10 Comments cues for LT and scapular control Shoulder ER Side right Resistance OTB Equipment Used towel Reps/Minutes 2x10 Comments cues for LT and scapular control PT-OP-T Assessment and Plan Start: 03/02/23 11:26 Freq: Status: Active Protocol: Document 03/14/23 09:50 AM (Rec: 03/14/23 12:24 AM [id number]) Physical Therapy Assessment Goals Scapular strength Impairment Pt with scapular strength of 3 -/5 LT and 3+/5 MT strength Short Term Goal (STG) Pt with 3+/5 lower trap strength, 4-/5 middle trap strength STG Duration 03/23/23 [facility] Goal (LTG) Pt with 4/5 middle trap and lower trap strength LTG Duration 04/13/23 [place] Impairment Pt with Quick Dash score of 20 % Manager Mechanical Maintenance Goal (LTG) Pt with Quick Dash score of 10 % LTG Duration 04/13/23 HEP [facility] Goal (LTG) Pt independent with HEP. LTG Duration 04/13/23 [place] Impairment Pt unable to use bow without increase in shoulder pain. Manager Mechanical Maintenance Goal (LTG) Pt able to use bow with proper scapulohumeral mechanics without production of increased pain. LTG Duration 04/13/23 Assessment Summary Assessment Pt with improving scapular control with exercises today. Pt cued for decreased UT involvement with prone MT and with unilateral standing row. Pt with decreasing tenderness of posterior shoulder girdle musculature today. Pt demonstrates fatigue with shoulder ER strengthening. Pt would benefit from continued PT to progress shoulder girdle strength for higher level functional/recreational activities. Physical Therapy Plan Frequency and Duration Frequency of Treatment 2x/Week Duration of treatment (weeks) 6 Plan of Care Start Date 03/02/23 Plan of Care End Date 04/13/23 Therapeutic Interventions Therapeutic Interventions Coordination Training,Home Exercise Program,Joint Mobilizations,Manual Therapy, Neuromuscular Re-education, Patient/Caregiver Education, Self-Care/Home Management,Soft Tissue Mobilization,Taping, Therapeutic Activities, Therapeutic Exercises Modalities Cold Pack/Ice Massage,Electric Stimulation,Hot Packs, Ultrasound Next Visit Focus/Plan Next Note Type Treatment Note Next Visit Plan progress rotator cuff strength , progress scapular stabilization strength
--- NOTE | 2023-03-17 09:50 | PT.OTN ---
Current Diagnoses Pain in unspecified shoulder (03/17/23) Physical Therapy Treatment Note PT-OP-A Visit Information Start: 03/02/23 11:26 Freq: Status: Active Protocol: Document 03/17/23 09:50 AM (Rec: 03/17/23 10:47 AM [id number]) Out-Patient Physical Therapy Visit Information Visit Information Visit Type Treatment Note Visit Start Time 09:50 Visit Stop Time 10:35 Total Visit Minutes 45 Visit Number 5 PT-OP-B Current Condition Start: 03/02/23 11:26 Freq: Status: Active Protocol: Document 03/07/23 09:49 AM (Rec: 03/07/23 11:31 AM [id number]) Current Condition History of Current Condition Onset Date 30 years ago Current Complaints R shoulder History of Current Condition Pt thinks that he tore something in his shoulder 30 years ago and never fixed it. Pt reports that he fell on his R shoulder about a year ago and it has been painful since. Pt reports that his shoulder feels weak. Pt reports that he has an independent gym program, but not sure what to do to progress his shoulder strength and mobility without increasing pain. Pt likes to bow chen, though has difficulty using his bow currently. Prior Treatments and Tests Pt had an x-ray a few years ago, pt unsure of results PT-OP-C Subjective Start: 03/02/23 11:26 Freq: Status: Active Protocol: Document 03/17/23 09:50 AM (Rec: 03/17/23 10:47 AM [id number]) OP-PT Subjective Patient Comments Patient Comments Pt reports that he has not been to the gym since previous session, therefore has not done any of the cable exercises. PT-OP-K Range of Motion Start: 03/02/23 11:26 Freq: Status: Active Protocol: Document 03/02/23 12:20 AM (Rec: 03/02/23 18:03 AM [id number]) Shoulder Goniometric Range of Motion Shoulder Right Active Flexion 140 Abduction 155 Internal Rotation Behind Back (text) L1 Comments Aply ER: T1 Left Active Flexion 145 Abduction 155 Internal Rotation Behind Back (text) T9 Comments Aply ER: T5 PT-OP-L Special Tests Start: 03/02/23 11:26 Freq: Status: Active Protocol: Document 03/02/23 12:20 AM (Rec: 03/02/23 18:03 AM [id number]) Special Tests Shoulder Special Tests IR/Horizontal ADD Impingement Test Results + Empty Can Test Results negative on R PT-OP-M Strength Start: 03/02/23 11:26 Freq: Status: Active Protocol: Document 03/02/23 12:20 AM (Rec: 03/03/23 10:29 AM [id number]) Scapula Strength Scapula Manual Muscle Testing Right Comments Mid trap: 3+/5, cues to decrease UT involvement Low trap: 3-/5 PT-OP-Q Treatments Start: 03/02/23 11:26 Freq: Status: Active Protocol: Document 03/17/23 09:50 AM (Rec: 03/17/23 10:47 AM [id number]) Cardio Equipment Upper Body Ergometer (UBE) Duration (Minutes) 5 RPM 70 Therapeutic Exercises Prone Exercises Mid Trap Equipment Used on green [place] ball Reps/Minutes x10 Comments cues for decreased UT involvement Sidelying Exercises Sleeper stretch Reps/Minutes x30 sec Standing Exercises Standing row Resistance 1 on cable machine in bow motion Reps/Minutes 2x10 ea Comments cues for scapular control and LT Shoulder IR Side right Resistance OTB Equipment Used towel Reps/Minutes 2x10 Comments cues for LT and scapular control Shoulder ER Side right Resistance OTB Equipment Used towel Reps/Minutes 2x10 Comments cues for LT and scapular control Wall slide Standing Exercise Name Serratus wall slide Resistance [place] TB Reps/Minutes x10 Manual Therapy Treatment Soft Tissue Mobilization Scapular muscles Body Location R periscapular muscles, posterior deltoid Mobilization Type Myofascial Release,Trigger Point Release Intensity/Depth Moderate Body Position Sidelying Joint Mobilizations GHJ Joint S-I and A-P Grade III Body Position Supine Manual Techniques PROM Type R shoulder PROM all directions PT-OP-T Assessment and Plan Start: 03/02/23 11:26 Freq: Status: Active Protocol: Document 03/17/23 09:50 AM (Rec: 03/17/23 10:47 AM [id number]) Physical Therapy Assessment Goals Scapular strength Impairment Pt with scapular strength of 3 -/5 LT and 3+/5 MT strength Short Term Goal (STG) Pt with 3+/5 lower trap strength, 4-/5 middle trap strength STG Duration 03/23/23 Mcfp Goal (LTG) Pt with 4/5 middle trap and lower trap strength LTG Duration 04/13/23 Quick Dash Impairment Pt with Quick Dash score of 20 % Contract Mail Carrier Goal (LTG) Pt with Quick Dash score of 10 % LTG Duration 04/13/23 HEP Mcfp Goal (LTG) Pt independent with HEP. LTG Duration 04/13/23 [place] Impairment Pt unable to use bow without increase in shoulder pain. Contract Mail Carrier Goal (LTG) Pt able to use bow with proper scapulohumeral mechanics without production of increased pain. LTG Duration 04/13/23 Assessment Summary Assessment Pt continues to demonstrates stiffness at posterior capsule with shoulder IR. Pt with fatigue of rotator cuff with resisted shoulder ER. Pt demonstrates improving scapular control. Pt with improved range with wall slides with band facilitation of SA. Pt would benefit from continued PT to progress shoulder strength and functional mobility as tolerated. Physical Therapy Plan Frequency and Duration Frequency of Treatment 2x/Week Duration of treatment (weeks) 6 Plan of Care Start Date 03/02/23 Plan of Care End Date 04/13/23 Therapeutic Interventions Therapeutic Interventions Coordination Training,Home Exercise Program,Joint Mobilizations,Manual Therapy, Neuromuscular Re-education, Patient/Caregiver Education, Self-Care/Home Management,Soft Tissue Mobilization,Taping, Therapeutic Activities, Therapeutic Exercises Modalities Cold Pack/Ice Massage,Electric Stimulation,Hot Packs, Ultrasound Next Visit Focus/Plan Next Note Type Progress Note Next Visit Plan progress rotator cuff strength , progress scapular stabilization strength
--- NOTE | 2023-03-22 11:44 | PT.OTN ---
Current Diagnoses Pain in unspecified shoulder (03/22/23) Physical Therapy Treatment Note PT-OP-A Visit Information Start: 03/02/23 11:26 Freq: Status: Active Protocol: Document 03/22/23 09:47 [facility] (Rec: 03/22/23 10:30 SAK [id number]) Out-Patient Physical Therapy Visit Information Visit Information Visit Type Treatment Note Visit Start Time 09:47 Visit Stop Time 10:40 Total Visit Minutes 53 Visit Number 6 PT-OP-B Current Condition Start: 03/02/23 11:26 Freq: Status: Active Protocol: Document 03/07/23 09:49 AM (Rec: 03/07/23 11:31 AM [id number]) Current Condition History of Current Condition Onset Date 30 years ago Current Complaints R shoulder History of Current Condition Pt thinks that he tore something in his shoulder 30 years ago and never fixed it. Pt reports that he fell on his R shoulder about a year ago and it has been painful since. Pt reports that his shoulder feels weak. Pt reports that he has an independent gym program, but not sure what to do to progress his shoulder strength and mobility without increasing pain. Pt likes to bow chen, though has difficulty using his bow currently. Prior Treatments and Tests Pt had an x-ray a few years ago, pt unsure of results PT-OP-C Subjective Start: 03/02/23 11:26 Freq: Status: Active Protocol: Document 03/22/23 09:47 [facility] (Rec: 03/22/23 10:30 [facility] [id number]) OP-PT Subjective Patient Comments Patient Comments Has used the cables at the gym to simulate using bow. Since starting PT hasn't had to take Ibuprofen which he reports he was taking most every day. Not sure if doing exercises correctly PT-OP-K Range of Motion Start: 03/02/23 11:26 Freq: Status: Active Protocol: Document 03/02/23 12:20 AM (Rec: 03/02/23 18:03 AM [id number]) Shoulder Goniometric Range of Motion Shoulder Right Active Flexion 140 Abduction 155 Internal Rotation Behind Back (text) L1 Comments Aply ER: T1 Left Active Flexion 145 Abduction 155 Internal Rotation Behind Back (text) T9 Comments Aply ER: T5 PT-OP-L Special Tests Start: 03/02/23 11:26 Freq: Status: Active Protocol: Document 03/02/23 12:20 AM (Rec: 03/02/23 18:03 AM [id number]) Special Tests Shoulder Special Tests IR/Horizontal ADD Impingement Test Results + Empty Can Test Results negative on R PT-OP-M Strength Start: 03/02/23 11:26 Freq: Status: Active Protocol: Document 03/02/23 12:20 AM (Rec: 03/03/23 10:29 AM [id number]) Scapula Strength Scapula Manual Muscle Testing Right Comments Mid trap: 3+/5, cues to decrease UT involvement Low trap: 3-/5 PT-OP-Q Treatments Start: 03/02/23 11:26 Freq: Status: Active Protocol: Document 03/22/23 09:47 SAK (Rec: 03/22/23 10:30 SAK [id number]) Cardio Equipment Upper Body Ergometer (UBE) Duration (Minutes) 6 RPM 70 Other fwd and back Therapeutic Exercises Supine Exercises posterior capsule stretch Reps/Minutes 2x30 Comments cues for pain-free ROM, angle Prone Exercises Low trap Side right Reps/Minutes x10 Comments poor scapulohumeral rhythm with max manual cues, Shoulder extension Side right Resistance 0-2# Reps/Minutes 2x10 Comments on ball, cues for scap stab Mid Trap Equipment Used on green [place] ball Reps/Minutes x10 Comments cues for decreased UT involvement Sidelying Exercises Sleeper stretch Reps/Minutes x30 sec Flexion Side right Reps/Minutes 2x10 Comments with manual scapular mob ER Side right Resistance 2 Equipment Used towel at elbow Reps/Minutes 2x10 Comments cues for scap stab Standing Exercises Body blade Standing Exercise Name serjio front, unil f/b, IR/ER, bow motion Reps/Minutes 30 sec ea Standing row Resistance 1 on cable machine in bow motion Reps/Minutes 2x10 ea Comments verbal and manual cues for scapular control and LT Wall slide Standing Exercise Name with LT lift off Reps/Minutes x10 Manual Therapy Treatment Soft Tissue Mobilization Scapular muscles Body Location R periscapular muscles, posterior deltoid Mobilization Type Myofascial Release,Trigger Point Release Intensity/Depth Moderate Body Position Sidelying Joint Mobilizations GHJ Joint S-I and A-P Grade III Body Position Supine Manual Techniques PROM Type R shoulder PROM all directions Comments with inf GH glide with elevation PT-OP-T Assessment and Plan Start: 03/02/23 11:26 Freq: Status: Active Protocol: Document 03/22/23 09:47 DANILO (Rec: 03/22/23 10:30 [facility] [id number]) Physical Therapy Assessment Goals Scapular strength Impairment Pt with scapular strength of 3 -/5 LT and 3+/5 MT strength Short Term Goal (STG) Pt with 3+/5 lower trap strength, 4-/5 middle trap strength STG Duration 03/23/23 Erosion Control Specialist Goal (LTG) Pt with 4/5 middle trap and lower trap strength LTG Duration 04/13/23 Quick Dash Impairment Pt with Quick Dash score of 20 % Alf Goal (LTG) Pt with Quick Dash score of 10 % LTG Duration 04/13/23 HEP Erosion Control Specialist Goal (LTG) Pt independent with HEP. LTG Duration 04/13/23 [place] Impairment Pt unable to use bow without increase in shoulder pain. Alf Goal (LTG) Pt able to use bow with proper scapulohumeral mechanics without production of increased pain. LTG Duration 04/13/23 Assessment Summary Assessment Most limited with IR ROM, tight posterior capsule. Improved scapulohumeral rhythm with verbal and manual cues. Frequent excess UT recruitment, cues to inhibit, benefited from use of mirror for visual feedback. Physical Therapy Plan Frequency and Duration Frequency of Treatment 2x/Week Duration of treatment (weeks) 6 Plan of Care Start Date 03/02/23 Plan of Care End Date 04/13/23 Therapeutic Interventions Therapeutic Interventions Coordination Training,Home Exercise Program,Joint Mobilizations,Manual Therapy, Neuromuscular Re-education, Patient/Caregiver Education, Self-Care/Home Management,Soft Tissue Mobilization,Taping, Therapeutic Activities, Therapeutic Exercises Modalities Cold Pack/Ice Massage,Electric Stimulation,Hot Packs, Ultrasound Next Visit Focus/Plan Next Note Type Progress Note Next Visit Plan progress rotator cuff strength , progress scapular stabilization strength
--- NOTE | 2023-03-25 09:04 | PT.OTN ---
Current Diagnoses Pain in unspecified shoulder (03/25/23) Physical Therapy Treatment Note PT-OP-A Visit Information Start: 03/02/23 11:26 Freq: Status: Active Protocol: Document 03/25/23 09:04 AM (Rec: 03/25/23 10:58 AM [id number]) Out-Patient Physical Therapy Visit Information Visit Information Visit Type Progress Note Visit Start Time 09:04 Visit Stop Time 09:44 Total Visit Minutes 40 Visit Number 7 PT-OP-B Current Condition Start: 03/02/23 11:26 Freq: Status: Active Protocol: Document 03/07/23 09:49 AM (Rec: 03/07/23 11:31 AM [id number]) Current Condition History of Current Condition Onset Date 30 years ago Current Complaints R shoulder History of Current Condition Pt thinks that he tore something in his shoulder 30 years ago and never fixed it. Pt reports that he fell on his R shoulder about a year ago and it has been painful since. Pt reports that his shoulder feels weak. Pt reports that he has an independent gym program, but not sure what to do to progress his shoulder strength and mobility without increasing pain. Pt likes to bow chen, though has difficulty using his bow currently. Prior Treatments and Tests Pt had an x-ray a few years ago, pt unsure of results PT-OP-C Subjective Start: 03/02/23 11:26 Freq: Status: Active Protocol: Document 03/25/23 09:04 AM (Rec: 03/25/23 10:58 AM [id number]) OP-PT Subjective Patient Comments Patient Comments Pt reports that his shoulder tends to feel stiff in the morning. Pt reports that he has been doing the sidelying sleeper stretch and that seems to be helpful. PT-OP-K Range of Motion Start: 03/02/23 11:26 Freq: Status: Active Protocol: Document 03/02/23 12:20 AM (Rec: 03/02/23 18:03 AM [id number]) Shoulder Goniometric Range of Motion Shoulder Right Active Flexion 140 Abduction 155 Internal Rotation Behind Back (text) L1 Comments Aply ER: T1 Left Active Flexion 145 Abduction 155 Internal Rotation Behind Back (text) T9 Comments Aply ER: T5 PT-OP-L Special Tests Start: 03/02/23 11:26 Freq: Status: Active Protocol: Document 03/02/23 12:20 AM (Rec: 03/02/23 18:03 AM [id number]) Special Tests Shoulder Special Tests IR/Horizontal ADD Impingement Test Results + Empty Can Test Results negative on R PT-OP-M Strength Start: 03/02/23 11:26 Freq: Status: Active Protocol: Document 03/25/23 09:04 AM (Rec: 03/25/23 10:58 AM [id number]) Scapula Strength Scapula Manual Muscle Testing Right Comments MT: 4- on R LT: 3+ on R PT-OP-Q Treatments Start: 03/02/23 11:26 Freq: Status: Active Protocol: Document 03/25/23 09:04 AM (Rec: 03/25/23 10:58 AM [id number]) Cardio Equipment Upper Body Ergometer (UBE) Duration (Minutes) 6 RPM 70 Other fwd and back Gym Equipment Cable Column (Body Solid) Lat Pull Down Details To strengthen lats, used with drawing bow Resistance 30# Reps/Time x15, unilateral and bilateral Therapeutic Exercises Prone Exercises Low trap Side bilateral Reps/Minutes x10 Comments dowel in hands with shoulder ER. lift off Sidelying Exercises Flexion Side right Reps/Minutes 2x10 Comments with manual scapular mob Abduction Side right Resistance 2 Reps/Minutes 2x10 ER Side right Resistance 2 Equipment Used towel at elbow Reps/Minutes 2x10 Comments cues for scap stab Standing Exercises Standing row Resistance 1 on cable machine in bow motion Reps/Minutes 2x10 ea Comments verbal and manual cues for scapular control and LT Shoulder IR Side right Resistance OTB Equipment Used towel Reps/Minutes 2x10 Comments cues for LT and scapular control Shoulder ER Side right Resistance OTB Equipment Used towel Reps/Minutes 2x10 Comments cues for LT and scapular control Manual Therapy Treatment Soft Tissue Mobilization Scapular muscles Body Location R periscapular muscles, posterior deltoid Mobilization Type Myofascial Release,Trigger Point Release Intensity/Depth Moderate Body Position Sidelying Joint Mobilizations GHJ Joint S-I and A-P Grade III Body Position Supine Manual Techniques PROM Type R shoulder PROM all directions Comments with inf GH glide with elevation, emphasis on IR PT-OP-R Modalities Start: 03/02/23 11:26 Freq: Status: Active Protocol: Document 03/22/23 09:47 SAK (Rec: 03/22/23 11:50 SAK [id number]) Hot Pack/Cold Pack Treatment Cold Pack Location right shoulder Patient Position Hooklying Treatment Duration (minutes) 10 Patient Tolerance Good PT-OP-T Assessment and Plan Start: 03/02/23 11:26 Freq: Status: Active Protocol: Document 03/25/23 09:04 AM (Rec: 03/25/23 10:58 AM [id number]) Physical Therapy Assessment Goals Scapular strength Impairment Pt with scapular strength of 3 -/5 LT and 3+/5 MT strength Short Term Goal (STG) Pt with 3+/5 lower trap strength, 4-/5 middle trap strength. 03/25/23: Goal met STG Duration 03/23/23 [employer] Goal (LTG) Pt with 4/5 middle trap and lower trap strength LTG Duration 04/13/23 Quick Dash Impairment Pt with Quick Dash score of 20 % Supervisor [employer] Processing Goal (LTG) Pt with Quick Dash score of 10 % LTG Duration 04/13/23 HEP Supervisor [employer] Processing Goal (LTG) Pt independent with HEP. LTG Duration 04/13/23 [place] Impairment Pt unable to use bow without increase in shoulder pain. Mcc Goal (LTG) Pt able to use bow with proper scapulohumeral mechanics without production of increased pain. LTG Duration 04/13/23 Progress Towards Goals Progress Towards Goals Progressing Toward Goals Assessment Summary Assessment Pt demonstrates improving IR mobility. Pt with decreasing tenderness with STM at posterior capsule/scapular muscules. Pt demonstrates fatigue at RTC with shoulder ER stengthening. Pt would benefit from continued PT to progress scapular control and shoulder girdle strength for higher level recreational activities. Physical Therapy Plan Frequency and Duration Frequency of Treatment 2x/Week Duration of treatment (weeks) 6 Plan of Care Start Date 03/02/23 Plan of Care End Date 04/13/23 Therapeutic Interventions Therapeutic Interventions Coordination Training,Home Exercise Program,Joint Mobilizations,Manual Therapy, Neuromuscular Re-education, Patient/Caregiver Education, Self-Care/Home Management,Soft Tissue Mobilization,Taping, Therapeutic Activities, Therapeutic Exercises Modalities Cold Pack/Ice Massage,Electric Stimulation,Hot Packs, Ultrasound Next Visit Focus/Plan Next Note Type Progress Note Next Visit Plan progress rotator cuff strength , progress scapular stabilization strength
--- NOTE | 2023-04-07 10:23 | PT.OTN ---
Current Diagnoses Pain in unspecified shoulder (04/07/23) Physical Therapy Treatment Note PT-OP-A Visit Information Start: 03/02/23 11:26 Freq: Status: Active Protocol: Document 04/07/23 08:15 SAK (Rec: 04/07/23 09:00 [facility] [id number]) Out-Patient Physical Therapy Visit Information Visit Information Visit Type Treatment Note Visit Start Time 08:16 Visit Stop Time 09:10 Total Visit Minutes 54 Visit Number 8 Evaluation Information Evaluation Date 03/02/23 PT-OP-B Current Condition Start: 03/02/23 11:26 Freq: Status: Active Protocol: Document 04/07/23 08:15 SAK (Rec: 04/07/23 09:00 SAK [id number]) Current Condition History of Current Condition Onset Date 30 years ago Current Complaints R shoulder History of Current Condition Pt thinks that he tore something in his shoulder 30 years ago and never fixed it. Pt reports that he fell on his R shoulder about a year ago and it has been painful since. Pt reports that his shoulder feels weak. Pt reports that he has an independent gym program, but not sure what to do to progress his shoulder strength and mobility without increasing pain. Pt likes to bow chen, though has difficulty using his bow currently. Prior Treatments and Tests Pt had an x-ray a few years ago, pt unsure of results PT-OP-C Subjective Start: 03/02/23 11:26 Freq: Status: Active Protocol: Document 04/07/23 08:15 SAK (Rec: 04/07/23 09:00 [facility] [id number]) OP-PT Subjective Patient Comments Patient Comments Asks to review HEP to make sure doing ex correctly. Hasn 't taken any Ibuprofen recently. Fair compliance to HEP. Working on body awareness. Patient Reported Progress Improving PT-OP-K Range of Motion Start: 03/02/23 11:26 Freq: Status: Active Protocol: Document 03/02/23 12:20 AM (Rec: 03/02/23 18:03 AM [id number]) Shoulder Goniometric Range of Motion Shoulder Right Active Flexion 140 Abduction 155 Internal Rotation Behind Back (text) L1 Comments Aply ER: T1 Left Active Flexion 145 Abduction 155 Internal Rotation Behind Back (text) T9 Comments Aply ER: T5 PT-OP-L Special Tests Start: 03/02/23 11:26 Freq: Status: Active Protocol: Document 03/02/23 12:20 AM (Rec: 03/02/23 18:03 AM [id number]) Special Tests Shoulder Special Tests IR/Horizontal ADD Impingement Test Results + Empty Can Test Results negative on R PT-OP-M Strength Start: 03/02/23 11:26 Freq: Status: Active Protocol: Document 03/25/23 09:04 AM (Rec: 03/25/23 10:58 AM [id number]) Scapula Strength Scapula Manual Muscle Testing Right Comments MT: 4- on R LT: 3+ on R PT-OP-Q Treatments Start: 03/02/23 11:26 Freq: Status: Active Protocol: Document 04/07/23 08:15 SAK (Rec: 04/07/23 09:00 SAK [id number]) Gym Equipment Cable Column (Body Solid) Lat Pull Down Details To strengthen lats, used with drawing bow Resistance 30# Reps/Time x15, unilateral and bilateral Therapeutic Exercises Supine Exercises pec stretch Equipment Used foam roller Reps/Minutes 2x30 posterior capsule stretch Reps/Minutes 2x30 Comments cues for pain-free ROM, angle Serratus punch Resistance 0-2# Equipment Used foam roller Reps/Minutes 2x10 Prone Exercises Low trap Side bilateral Reps/Minutes x10 Comments dowel in hands with shoulder ER. lift off Shoulder extension Side bilateral Resistance 0-2# Reps/Minutes 2x10 Comments on ball, cues for scap stab Mid Trap Side bilateral Resistance 2# Equipment Used on green dutch ball Reps/Minutes x10 Comments cues for decreased UT involvement Sidelying Exercises Sleeper stretch Reps/Minutes x30 sec Flexion Side right Resistance 2# Reps/Minutes 2x10 Comments with manual scapular mob Abduction Side right Resistance 2 Reps/Minutes 2x10 ER Side right Resistance 2 Equipment Used towel at elbow Reps/Minutes 2x10 Comments cues for scap stab, slow speed Standing Exercises Standing row Resistance 1 on cable machine in bow motion, purple TB Reps/Minutes 2x10 ea Comments verbal and manual cues for scapular control and LT Shoulder IR Standing Exercise Name added to HEP Side right Equipment Used towel Reps/Minutes 5x10 Comments cues for LT and scapular control, compare opp side Manual Therapy Treatment Joint Mobilizations GHJ Joint S-I and A-P Grade III Body Position Supine Manual Techniques PROM Type R shoulder PROM all directions Comments with inf GH glide with elevation, emphasis on IR PT-OP-R Modalities Start: 03/02/23 11:26 Freq: Status: Active Protocol: Document 04/07/23 08:15 [facility] (Rec: 04/07/23 10:23 [facility] [id number]) Hot Pack/Cold Pack Treatment Cold Pack Location right shoulder Patient Position Hooklying Treatment Duration (minutes) 10 Patient Tolerance Good PT-OP-T Assessment and Plan Start: 03/02/23 11:26 Freq: Status: Active Protocol: Document 04/07/23 08:15 [facility] (Rec: 04/07/23 09:00 [facility] [id number]) Physical Therapy Assessment Goals Scapular strength Impairment Pt with scapular strength of 3 -/5 LT and 3+/5 MT strength Short Term Goal (STG) Pt with 3+/5 lower trap strength, 4-/5 middle trap strength. 03/25/23: Goal met STG Duration goal met Nursing Home Goal (LTG) Pt with 4/5 middle trap and lower trap strength 04/07/23: assess next session LTG Duration 04/13/23 Quick Dash Impairment Pt with Quick Dash score of 20 % Nursing Home Goal (LTG) Pt with Quick Dash score of 10 % 04/07/23: patient reporting progress, not filled out today LTG Duration 04/13/23 HEP Nursing Home Goal (LTG) Pt independent with HEP. 04/07/23: good goal progress, continue to modify and progress. REviewed current HEP today with some corrections and cues required for safe performance LTG Duration 04/13/23 [place] Impairment Pt unable to use bow without increase in shoulder pain. Nursing Home Goal (LTG) Pt able to use bow with proper scapulohumeral mechanics without production of increased pain. 04/07/23: goal progress, still some pain though decreased with simulation using weight machine and theraband. Hasn 't tried yet with actual bow LTG Duration 04/13/23 Progress Towards Goals Progress Towards Goals Progressing Toward Goals Assessment Summary Assessment REviewed current HEP per patient request with verbal and tactile cues for scapular mechanics and stabilization, added IR stretch with towel to HEP. Cues for slowed speed with strengthening exercises, paying attention to muscular activation and form. Physical Therapy Plan Frequency and Duration Frequency of Treatment 2x/Week Duration of treatment (weeks) 6 Plan of Care Start Date 03/02/23 Plan of Care End Date 04/13/23 Therapeutic Interventions Therapeutic Interventions Coordination Training,Home Exercise Program,Joint Mobilizations,Manual Therapy, Neuromuscular Re-education, Patient/Caregiver Education, Self-Care/Home Management,Soft Tissue Mobilization,Taping, Therapeutic Activities, Therapeutic Exercises Modalities Cold Pack/Ice Massage,Electric Stimulation,Hot Packs, Ultrasound Next Visit Focus/Plan Next Note Type Re-Evaluation Next Visit Plan progress rotator cuff strength , progress scapular stabilization strength emphasis on correct scapular mechanics with functional activities.
--- NOTE | 2023-04-11 12:00 | PT.OPPOC ---
Physical, Occupational & Speech Therapy At Current Diagnoses Pain in unspecified shoulder (04/11/23) Visit Care Team Role Provider Type Jessie Hall MD Attending Provider Physician Family Provider Primary Care Provider Referring Provider Specialty: Family Practice Address: [address] [place] [address], [id number] Email: [email or web address] Plan Of Care PT-OP-T Assessment and Plan Start: 03/02/23 11:26 Freq: Status: Active Protocol: Document 04/11/23 14:44 SAK (Rec: 04/17/23 14:48 SAK [id number]) Physical Therapy Assessment Goals Scapular strength Impairment Pt with scapular strength of 3 -/5 LT and 3+/5 MT strength Short Term Goal (STG) Pt with 3+/5 lower trap strength, 4-/5 middle trap strength. 03/25/23: Goal met STG Duration goal met Corner Bead Operator Goal (LTG) Pt with 4/5 middle trap and lower trap strength 04/07/23: assess next session 04/11/23: lower trap 4-/5, midle trap 4/5, good goal progress LTG Duration 04/13/23 Quick Dash Impairment Pt with Quick Dash score of 20 % Corner Bead Operator Goal (LTG) Pt with Quick Dash score of 10 % 04/07/23: patient reporting progress, not filled out today 04/11/23: Quickdash score 12%, good goal progress LTG Duration 04/13/23 HEP Corner Bead Operator Goal (LTG) Pt independent with HEP. 04/07/23: good goal progress, continue to modify and progress. REviewed current HEP today with some corrections and cues required for safe performance LTG Duration 04/13/23 [place] Impairment Pt unable to use bow without increase in shoulder pain. Care Home Goal (LTG) Pt able to use bow with proper scapulohumeral mechanics without production of increased pain. 04/07/23: goal progress, still some pain though decreased with simulation using weight machine and theraband. Hasn 't tried yet with actual bow 04/11/23: Working on good bow mechanics including use of video with DESKTOP SUPPORT SPECIALIST for shoulder protection and proper form. Needs continued work and cues LTG Duration 04/13/23 Assessment Summary Assessment Edmund is making good progress toward goals as above. Would benefit from further skilled PT to help him fully achieve his PT goals and return to prior level of function. He is highly motivated and compliant to HEP. Physical Therapy Plan Frequency and Duration Frequency of Treatment 2x/Week Duration of treatment (weeks) 6 Plan of Care Start Date 04/11/23 Plan of Care End Date 05/19/22 Therapeutic Interventions Therapeutic Interventions Coordination Training,Home Exercise Program,Joint Mobilizations,Manual Therapy, Neuromuscular Re-education, Patient/Caregiver Education, Self-Care/Home Management,Soft Tissue Mobilization,Taping, Therapeutic Activities, Therapeutic Exercises Modalities Cold Pack/Ice Massage,Electric Stimulation,Hot Packs, Ultrasound Next Visit Focus/Plan Next Note Type Re-Evaluation Next Visit Plan Continue progressive RC strengthening and scapular stabilization strengthening with emphasis on correct scapular mechanics, especially with use of bow. Plan of Care Dates Plan of Care Start Date 04/11/23 Plan of Care End Date 05/19/22 Electronically Signed by: Smita Anand, PT 04/17/23 [id number] If you are in agreement with this Plan of Care, please return a signed and dated copy. I have reviewed this Plan of Care and certify that the skilled therapy services above are required to meet the patient?s needs. Physician Signature Date Printed Name and Credentials Clinical Instructor Signature Printed Name and Credentials
--- NOTE | 2023-04-11 12:00 | PT.OTRE ---
Current Diagnoses Pain in unspecified shoulder (04/11/23) Surgical History (Last Reviewed 08/11/21 @ 20:44 by Letty Ortiz [facility]) Anesthesia Status post hernia repair (~1962) Visit Care Team Role Provider Type Jessie Hall MD Attending Provider Physician Family Provider Primary Care Provider Referring Provider Specialty: Family Practice Address: [address] [place] [address], [id number] Email: [email or web address] Physical Therapy Re-Evaluation PT-OP-A Visit Information Start: 03/02/23 11:26 Freq: Status: Active Protocol: Document 04/11/23 14:44 SAK (Rec: 04/17/23 14:48 SAK [id number]) Out-Patient Physical Therapy Visit Information Visit Information Visit Type Re-Evaluation Visit Start Time 12:00 Evaluation Information Evaluation Date 03/02/23 PT-OP-B Current Condition Start: 03/02/23 11:26 Freq: Status: Active Protocol: Document 04/11/23 14:44 SAK (Rec: 04/17/23 14:48 SAK [id number]) Current Condition History of Current Condition Onset Date 30 years ago Current Complaints R shoulder History of Current Condition Pt thinks that he tore something in his shoulder 30 years ago and never fixed it. Pt reports that he fell on his R shoulder about a year ago and it has been painful since. Pt reports that his shoulder feels weak. Pt reports that he has an independent gym program, but not sure what to do to progress his shoulder strength and mobility without increasing pain. Pt likes to bow chen, though has difficulty using his bow currently. Prior Treatments and Tests Pt had an x-ray a few years ago, pt unsure of results PT-OP-C Subjective Start: 03/02/23 11:26 Freq: Status: Active Protocol: Document 04/11/23 11:19 NBM (Rec: 04/11/23 13:06 NBM [id number]) OP-PT Subjective Patient Comments Patient Comments Edmund reports PT-OP-K Range of Motion Start: 03/02/23 11:26 Freq: Status: Active Protocol: Document 03/02/23 12:20 AM (Rec: 03/02/23 18:03 AM [id number]) Shoulder Goniometric Range of Motion Shoulder Measured in Degrees Right Active Flexion 140 Abduction 155 Internal Rotation Behind Back (text) L1 Comments Aply ER: T1 Left Active Flexion 145 Abduction 155 Internal Rotation Behind Back (text) T9 Comments Aply ER: T5 PT-OP-L Special Tests Start: 03/02/23 11:26 Freq: Status: Active Protocol: Document 03/02/23 12:20 AM (Rec: 03/02/23 18:03 AM [id number]) Special Tests Shoulder Special Tests IR/Horizontal ADD Impingement Test Results + Empty Can Test Results negative on R PT-OP-M Strength Start: 03/02/23 11:26 Freq: Status: Active Protocol: Document 03/25/23 09:04 AM (Rec: 03/25/23 10:58 AM [id number]) Scapula Strength Scapula Manual Muscle Testing Right Comments MT: 4- on R LT: 3+ on R PT-OP-Q Treatments Start: 03/02/23 11:26 Freq: Status: Active Protocol: Document 04/11/23 11:19 NBM (Rec: 04/11/23 13:06 [facility] [id number]) Gym Equipment Cable Column (Body Solid) Lat Pull Down Details To strengthen lats, used with drawing bow Resistance 30# Reps/Time x15, unilateral and bilateral Therapeutic Exercises Prone Exercises Mid Trap Side bilateral Resistance 1>2# Equipment Used on green marshallese ball Reps/Minutes x10 Comments cues for decreased UT involvement Standing Exercises Shoulder IR Standing Exercise Name added to HEP Side right Equipment Used sheet Reps/Minutes 5x10 Comments cues for LT and scapular control, compare opp side Shoulder ER Side right Resistance OTB Equipment Used towel Reps/Minutes 2x10 Comments cues for LT and scapular control PT-OP-R Modalities Start: 03/02/23 11:26 Freq: Status: Active Protocol: Document 04/11/23 11:19 NBM (Rec: 04/11/23 13:06 NB [id number]) Hot Pack/Cold Pack Treatment Cold Pack Location right shoulder Patient Position Hooklying Treatment Duration (minutes) 10 Patient Tolerance Good PT-OP-T Assessment and Plan Start: 03/02/23 11:26 Freq: Status: Active Protocol: Document 04/11/23 14:44 SAK (Rec: 04/17/23 14:48 SAK [id number]) Physical Therapy Assessment Goals Scapular strength Impairment Pt with scapular strength of 3 -/5 LT and 3+/5 MT strength Short Term Goal (STG) Pt with 3+/5 lower trap strength, 4-/5 middle trap strength. 03/25/23: Goal met STG Duration goal met Custodial Goal (LTG) Pt with 4/5 middle trap and lower trap strength 04/07/23: assess next session 04/11/23: lower trap 4-/5, midle trap 4/5, good goal progress LTG Duration 04/13/23 Quick Dash Impairment Pt with Quick Dash score of 20 % Custodial Goal (LTG) Pt with Quick Dash score of 10 % 04/07/23: patient reporting progress, not filled out today 04/11/23: Quickdash score 12%, good goal progress LTG Duration 04/13/23 HEP Environmental Health And Safety Intern Goal (LTG) Pt independent with HEP. 04/07/23: good goal progress, continue to modify and progress. REviewed current HEP today with some corrections and cues required for safe performance LTG Duration 04/13/23 [place] Impairment Pt unable to use bow without increase in shoulder pain. Environmental Health And Safety Intern Goal (LTG) Pt able to use bow with proper scapulohumeral mechanics without production of increased pain. 04/07/23: goal progress, still some pain though decreased with simulation using weight machine and theraband. Hasn 't tried yet with actual bow 04/11/23: Working on good bow mechanics including use of video with VENDING STAND SUPERVISOR for shoulder protection and proper form. Needs continued work and cues LTG Duration 04/13/23 Assessment Summary Assessment Edmund is making good progress toward goals as above. Would benefit from further skilled PT to help him fully achieve his PT goals and return to prior level of function. He is highly motivated and compliant to HEP. Physical Therapy Plan Frequency and Duration Frequency of Treatment 2x/Week Duration of treatment (weeks) 6 Plan of Care Start Date 04/11/23 Plan of Care End Date 05/19/22 Therapeutic Interventions Therapeutic Interventions Coordination Training,Home Exercise Program,Joint Mobilizations,Manual Therapy, Neuromuscular Re-education, Patient/Caregiver Education, Self-Care/Home Management,Soft Tissue Mobilization,Taping, Therapeutic Activities, Therapeutic Exercises Modalities Cold Pack/Ice Massage,Electric Stimulation,Hot Packs, Ultrasound Next Visit Focus/Plan Next Note Type Re-Evaluation Next Visit Plan Continue progressive RC strengthening and scapular stabilization strengthening with emphasis on correct scapular mechanics, especially with use of bow.
--- NOTE | 2023-04-21 17:01 | PT.OTN ---
Current Diagnoses Pain in unspecified shoulder (04/21/23) Physical Therapy Treatment Note PT-OP-A Visit Information Start: 03/02/23 11:26 Freq: Status: Active Protocol: Document 04/21/23 15:17 [facility] (Rec: 04/21/23 16:43 [facility] [id number]) Out-Patient Physical Therapy Visit Information Visit Information Visit Type Treatment Note Visit Start Time 15:17 Visit Stop Time 16:01 Total Visit Minutes 44 Visit Number 12 Number of RUBBER PRODUCTION MACHINE OPERATOR Visits 0 Evaluation Information Evaluation Date 03/02/23 PT-OP-B Current Condition Start: 03/02/23 11:26 Freq: Status: Active Protocol: Document 04/21/23 15:17 [facility] (Rec: 04/21/23 16:43 [facility] [id number]) Current Condition History of Current Condition Onset Date 30 years ago Current Complaints R shoulder History of Current Condition Pt thinks that he tore something in his shoulder 30 years ago and never fixed it. Pt reports that he fell on his R shoulder about a year ago and it has been painful since. Pt reports that his shoulder feels weak. Pt reports that he has an independent gym program, but not sure what to do to progress his shoulder strength and mobility without increasing pain. Pt likes to bow chen, though has difficulty using his bow currently. Prior Treatments and Tests Pt had an x-ray a few years ago, pt unsure of results PT-OP-C Subjective Start: 03/02/23 11:26 Freq: Status: Active Protocol: Document 04/21/23 15:17 [facility] (Rec: 04/21/23 17:01 [facility] [id number]) OP-PT Subjective Patient Comments Patient Comments Worst pain with reaching forward for phone, out to side . Overall more pain this week; not sure if doing too much or not enough. Hasn't been doing exercises on stomach; they are difficult and I don't like to stop my other exercises to do them. PT-OP-K Range of Motion Start: 03/02/23 11:26 Freq: Status: Active Protocol: Document 03/02/23 12:20 AM (Rec: 03/02/23 18:03 AM [id number]) Shoulder Goniometric Range of Motion Shoulder Right Active Flexion 140 Abduction 155 Internal Rotation Behind Back (text) L1 Comments Aply ER: T1 Left Active Flexion 145 Abduction 155 Internal Rotation Behind Back (text) T9 Comments Aply ER: T5 PT-OP-L Special Tests Start: 03/02/23 11:26 Freq: Status: Active Protocol: Document 03/02/23 12:20 AM (Rec: 03/02/23 18:03 AM [id number]) Special Tests Shoulder Special Tests IR/Horizontal ADD Impingement Test Results + Empty Can Test Results negative on R PT-OP-M Strength Start: 03/02/23 11:26 Freq: Status: Active Protocol: Document 03/25/23 09:04 AM (Rec: 03/25/23 10:58 AM [id number]) Scapula Strength Scapula Manual Muscle Testing Right Comments MT: 4- on R LT: 3+ on R PT-OP-Q Treatments Start: 03/02/23 11:26 Freq: Status: Active Protocol: Document 04/21/23 15:17 [facility] (Rec: 04/21/23 16:43 [facility] [id number]) Gym Equipment Cable Column (Body Solid) Lat Pull Down Details verbal review Therapeutic Ball pec stretch Exercise Details 65 cm ball Body Position Supine Reps/Duration 2 min Comments recommend patient get bigger ball (55 cm at home) Therapeutic Exercises Supine Exercises lat stretch Supine Exercise Name manual Reps/Minutes 2 min Comments with pin and stretch Serratus punch Resistance 2# Equipment Used foam roller Reps/Minutes 2x10 Prone Exercises Low trap Prone Exercise Name Y Side bilateral Equipment Used 65 cm ball Reps/Minutes 10x2 Shoulder extension Prone Exercise Name I Side bilateral Resistance 2# Equipment Used 65 cm ball Reps/Minutes 2x10 Mid Trap Side bilateral Resistance 2# Equipment Used 65 cm ball Reps/Minutes 2x10 Comments cues for decreased UT involvement Sidelying Exercises open book Sidelying Exercise Name added to HEP Reps/Minutes 3x Comments cues for segmental movement Self-Care/Home Management Treatment Education Other Education review technique online for shooting bow, practice in front of mirror with cues for dec shoulder elevation; patient had difficulty self- correcting but was able to see errors in his form PT-OP-R Modalities Start: 03/02/23 11:26 Freq: Status: Active Protocol: Document 04/11/23 11:19 [facility] (Rec: 04/11/23 13:06 [facility] [id number]) Hot Pack/Cold Pack Treatment Cold Pack Location right shoulder Patient Position Hooklying Treatment Duration (minutes) 10 Patient Tolerance Good PT-OP-T Assessment and Plan Start: 03/02/23 11:26 Freq: Status: Active Protocol: Document 04/21/23 15:17 [facility] (Rec: 04/21/23 16:43 [facility] [id number]) Physical Therapy Assessment Goals Scapular strength Impairment Pt with scapular strength of 3 -/5 LT and 3+/5 MT strength Short Term Goal (STG) Pt with 3+/5 lower trap strength, 4-/5 middle trap strength. 03/25/23: Goal met STG Duration goal met Plasterer Stucco Goal (LTG) Pt with 4/5 middle trap and lower trap strength 04/07/23: assess next session 04/11/23: lower trap 4-/5, midle trap 4/5, good goal progress LTG Duration 05/1123 Quick Dash Impairment Pt with Quick Dash score of 20 % Plasterer Stucco Goal (LTG) Pt with Quick Dash score of 10 % 04/07/23: patient reporting progress, not filled out today 04/11/23: Quickdash score 12%, good goal progress LTG Duration 05/19/23 HEP Long-Term Goal (LTG) Pt independent with HEP. 04/07/23: good goal progress, continue to modify and progress. REviewed current HEP today with some corrections and cues required for safe performance LTG Duration 05/19/23 [place] Impairment Pt unable to use bow without increase in shoulder pain. Plasterer Stucco Goal (LTG) Pt able to use bow with proper scapulohumeral mechanics without production of increased pain. 04/07/23: goal progress, still some pain though decreased with simulation using weight machine and theraband. Hasn 't tried yet with actual bow 04/11/23: Working on good bow mechanics including use of video with RUBBER PRODUCTION MACHINE OPERATOR for shoulder protection and proper form. Needs continued work and cues LTG Duration 05/19/23 Progress Towards Goals Progress Towards Goals Progressing Toward Goals Assessment Summary Assessment Pt has made some goal progress , modified HEP today and did further work on patient education regarding faulty mechanics on shooting bow which may be contributing to his pain; practice with visual feedback in front of mirror helpful in him seeing faulty mechanics. Needs further work on flexibility, strengthening , functional retraining to help him fully achieve his PT goals and return to prior level of function Physical Therapy Plan Frequency and Duration Frequency of Treatment 2x/Week Duration of treatment (weeks) 6 Plan of Care Start Date 04/11/23 Plan of Care End Date 05/19/22 Therapeutic Interventions Therapeutic Interventions Coordination Training,Home Exercise Program,Joint Mobilizations,Manual Therapy, Neuromuscular Re-education, Patient/Caregiver Education, Self-Care/Home Management,Soft Tissue Mobilization,Taping, Therapeutic Activities, Therapeutic Exercises Modalities Cold Pack/Ice Massage,Electric Stimulation,Hot Packs, Ultrasound Next Visit Focus/Plan Next Note Type Treatment Note Next Visit Plan Continue progressive RC strengthening and scapular stabilization strengthening with emphasis on correct scapular mechanics, especially with use of bow.
--- NOTE | 2023-05-10 10:17 | PT-OP ANOTE ---
Called pt re: missed 9:45a appointment which pt advised he had responded 05/07 to text appt reminder to cancel. He confirms next appt 05/12. Lith[employer] Press Fe[employer] Scheduling notified and confirms pt had text 05/07 to cancel 05/10 appt and they will update from No Show to Cancelled accordingly.
--- NOTE | 2023-05-12 08:33 | PT.OTN ---
Current Diagnoses Pain in unspecified shoulder (05/12/23) Physical Therapy Treatment Note PT-OP-A Visit Information Start: 03/02/23 11:26 Freq: Status: Active Protocol: Document 05/12/23 09:41 [facility] (Rec: 05/12/23 10:32 [facility] [id number]) Out-Patient Physical Therapy Visit Information Visit Information Visit Type Treatment Note Visit Start Time 09:45 Visit Stop Time 10:30 Total Visit Minutes 45 Visit Number 13 Evaluation Information Evaluation Date 03/02/23 PT-OP-B Current Condition Start: 03/02/23 11:26 Freq: Status: Active Protocol: Document 05/12/23 09:41 [facility] (Rec: 05/12/23 10:32 [facility] [id number]) Current Condition History of Current Condition Onset Date 30 years ago Current Complaints R shoulder History of Current Condition Pt thinks that he tore something in his shoulder 30 years ago and never fixed it. Pt reports that he fell on his R shoulder about a year ago and it has been painful since. Pt reports that his shoulder feels weak. Pt reports that he has an independent gym program, but not sure what to do to progress his shoulder strength and mobility without increasing pain. Pt likes to bow chen, though has difficulty using his bow currently. Prior Treatments and Tests Pt had an x-ray a few years ago, pt unsure of results PT-OP-C Subjective Start: 03/02/23 11:26 Freq: Status: Active Protocol: Document 05/12/23 09:41 [facility] (Rec: 05/12/23 10:32 [facility] [id number]) OP-PT Subjective Patient Comments Patient Comments Hasn't had much pain in shoulder, but has in muscle around shoulder blade. Patient reports hasn't been compliant to HEP during the holidays. right shoulder most painful when laying on left side, is better able to lay on right side. PT-OP-K Range of Motion Start: 03/02/23 11:26 Freq: Status: Active Protocol: Document 03/02/23 12:20 AM (Rec: 03/02/23 18:03 AM [id number]) Shoulder Goniometric Range of Motion Shoulder Right Active Flexion 140 Abduction 155 Internal Rotation Behind Back (text) L1 Comments Aply ER: T1 Left Active Flexion 145 Abduction 155 Internal Rotation Behind Back (text) T9 Comments Aply ER: T5 PT-OP-L Special Tests Start: 03/02/23 11:26 Freq: Status: Active Protocol: Document 03/02/23 12:20 AM (Rec: 03/02/23 18:03 AM [id number]) Special Tests Shoulder Special Tests IR/Horizontal ADD Impingement Test Results + Empty Can Test Results negative on R PT-OP-M Strength Start: 03/02/23 11:26 Freq: Status: Active Protocol: Document 03/25/23 09:04 AM (Rec: 03/25/23 10:58 AM [id number]) Scapula Strength Scapula Manual Muscle Testing Right Comments MT: 4- on R LT: 3+ on R PT-OP-Q Treatments Start: 03/02/23 11:26 Freq: Status: Active Protocol: Document 05/12/23 09:41 [facility] (Rec: 05/12/23 10:32 [facility] [id number]) Cardio Equipment Upper Body Ergometer (UBE) Duration (Minutes) 6 RPM 100 Seat Position 11 Height 2.5 Other fwd and back Therapeutic Exercises Prone Exercises Low trap Prone Exercise Name Y Side bilateral Resistance 1# Equipment Used 65 cm ball Reps/Minutes 10x2 Shoulder extension Prone Exercise Name I Side bilateral Resistance 2# Equipment Used 65 cm ball Reps/Minutes 2x10 Comments cues for straight out, scap engagement Mid Trap Side bilateral Resistance 2# Equipment Used 65 cm ball Reps/Minutes 2x10 Comments cues for decreased UT involvement Sidelying Exercises open book Reps/Minutes 3x Comments cues for segmental movement Manual Therapy Treatment Other Other Manual Treatments MMT, ROM testing right shoulder Self-Care/Home Management Treatment Education Other Education use of tennis/raquetball, Theracane for self massage PT-OP-R Modalities Start: 03/02/23 11:26 Freq: Status: Active Protocol: Document 04/11/23 11:19 [facility] (Rec: 04/11/23 13:06 [facility] [id number]) Hot Pack/Cold Pack Treatment Cold Pack Location right shoulder Patient Position Hooklying Treatment Duration (minutes) 10 Patient Tolerance Good PT-OP-T Assessment and Plan Start: 03/02/23 11:26 Freq: Status: Active Protocol: Document 05/12/23 09:41 [facility] (Rec: 05/12/23 10:32 [facility] [id number]) Physical Therapy Assessment Goals Scapular strength Impairment Pt with scapular strength of 3 -/5 LT and 3+/5 MT strength Short Term Goal (STG) Pt with 3+/5 lower trap strength, 4-/5 middle trap strength. 03/25/23: Goal met STG Duration goal met Tumbling Machine Operator Goal (LTG) Pt with 4/5 middle trap and lower trap strength 04/07/23: assess next session 04/11/23: lower trap 4-/5, midle trap 4/5, good goal progress 05/12/22: lower trap 4-/5, middle trap 4+/5, goal progress LTG Duration 06/19/23 Quick Dash Impairment Pt with Quick Dash score of 20 % Group Home Goal (LTG) Pt with Quick Dash score of 10 % 04/07/23: patient reporting progress, not filled out today 04/11/23: Quickdash score 12%, good goal progress 05/12/23: Quickdash score 11%, most painful with sleeping. Problem-solving today regarding bed positioning. LTG Duration 06/12/23 HEP Tumbling Machine Operator Goal (LTG) Pt independent with HEP. 04/07/23: good goal progress, continue to modify and progress. Reviewed current HEP today with some corrections and cues required for safe performance 05/12/23: Continue modifications and progressions of exercises . LTG Duration 06/12/23 [place] Impairment Pt unable to use bow without increase in shoulder pain. Tumbling Machine Operator Goal (LTG) Pt able to use bow with proper scapulohumeral mechanics without production of increased pain. 04/07/23: goal progress, still some pain though decreased with simulation using weight machine and theraband. Hasn 't tried yet with actual bow 04/11/23: Working on good bow mechanics including use of video with SKI TOPPER for shoulder protection and proper form. Needs continued work and cues 05/12/23: patien to bring bow next session for functional training. Have done further work using video of correct form to help patient decrease shoulder strain with this activity, requires cues for scapular activation. LTG Duration 05/19/23 Progress Towards Goals Progress Towards Goals Progressing Toward Goals Assessment Summary Assessment Patient continues to progress with decreased pain and improved function right UE. Goals remaining are for patient to be able to sleep without increased shoulder pain and to be able to return to shooting his bow without shoulder pain. He continues to improve but needs cues for correct scapular activation for shoulder stability and healthy function. Working on problem-solving bed positioning. Patient is highly motivated. Feel he would benefit from continued skilled physical therapy. Discussed POC and patient in agreement. Physical Therapy Plan Frequency and Duration Frequency of Treatment 2x/Week Duration of treatment (weeks) 6 Plan of Care Start Date 04/11/23 Plan of Care End Date 05/19/22 Therapeutic Interventions Therapeutic Interventions Coordination Training,Home Exercise Program,Joint Mobilizations,Manual Therapy, Neuromuscular Re-education, Patient/Caregiver Education, Self-Care/Home Management,Soft Tissue Mobilization,Taping, Therapeutic Activities, Therapeutic Exercises Modalities Cold Pack/Ice Massage,Electric Stimulation,Hot Packs, Ultrasound Next Visit Focus/Plan Next Note Type Treatment Note Next Visit Plan Continue progressive RC strengthening and scapular stabilization strengthening with emphasis on correct scapular mechanics, especially with use of bow.
--- NOTE | 2023-05-12 08:36 | PT.OPPOC ---
Physical, Occupational & Speech Therapy At [facility] Current Diagnoses Pain in unspecified shoulder (05/12/23) Visit Care Team Role Provider Type Jessie Hall MD Attending Provider Physician Family Provider Primary Care Provider Referring Provider Specialty: Family Practice Address: [address] [place] [address], [id number] Email: [email or web address] Plan Of Care PT-OP-T Assessment and Plan Start: 03/02/23 11:26 Freq: Status: Active Protocol: Document 05/12/23 09:41 [facility] (Rec: 05/12/23 10:32 [facility] [id number]) Physical Therapy Assessment Goals Scapular strength Impairment Pt with scapular strength of 3 -/5 LT and 3+/5 MT strength Short Term Goal (STG) Pt with 3+/5 lower trap strength, 4-/5 middle trap strength. 03/25/23: Goal met STG Duration goal met Button Broacher Goal (LTG) Pt with 4/5 middle trap and lower trap strength 04/07/23: assess next session 04/11/23: lower trap 4-/5, midle trap 4/5, good goal progress 05/12/22: lower trap 4-/5, middle trap 4+/5, goal progress LTG Duration 06/19/23 Quick Dash Impairment Pt with Quick Dash score of 20 % Button Broacher Goal (LTG) Pt with Quick Dash score of 10 % 04/07/23: patient reporting progress, not filled out today 04/11/23: Quickdash score 12%, good goal progress 05/12/23: Quickdash score 11%, most painful with sleeping. Problem-solving today regarding bed positioning. LTG Duration 06/12/23 HEP Button Broacher Goal (LTG) Pt independent with HEP. 04/07/23: good goal progress, continue to modify and progress. Reviewed current HEP today with some corrections and cues required for safe performance 05/12/23: Continue modifications and progressions of exercises . LTG Duration 06/12/23 [place] Impairment Pt unable to use bow without increase in shoulder pain. Button Broacher Goal (LTG) Pt able to use bow with proper scapulohumeral mechanics without production of increased pain. 04/07/23: goal progress, still some pain though decreased with simulation using weight machine and theraband. Hasn 't tried yet with actual bow 04/11/23: Working on good bow mechanics including use of video with REPAIR SUPERVISOR for shoulder protection and proper form. Needs continued work and cues 05/12/23: patien to bring bow next session for functional training. Have done further work using video of correct form to help patient decrease shoulder strain with this activity, requires cues for scapular activation. LTG Duration 05/19/23 Progress Towards Goals Progress Towards Goals Progressing Toward Goals Assessment Summary Assessment Patient continues to progress with decreased pain and improved function right UE. Goals remaining are for patient to be able to sleep without increased shoulder pain and to be able to return to shooting his bow without shoulder pain. He continues to improve but needs cues for correct scapular activation for shoulder stability and healthy function. Working on problem-solving bed positioning. Patient is highly motivated. Feel he would benefit from continued skilled physical therapy. Discussed POC and patient in agreement. Physical Therapy Plan Frequency and Duration Frequency of Treatment 2x/Week Duration of treatment (weeks) 6 Plan of Care Start Date 04/11/23 Plan of Care End Date 05/19/22 Therapeutic Interventions Therapeutic Interventions Coordination Training,Home Exercise Program,Joint Mobilizations,Manual Therapy, Neuromuscular Re-education, Patient/Caregiver Education, Self-Care/Home Management,Soft Tissue Mobilization,Taping, Therapeutic Activities, Therapeutic Exercises Modalities Cold Pack/Ice Massage,Electric Stimulation,Hot Packs, Ultrasound Next Visit Focus/Plan Next Note Type Treatment Note Next Visit Plan Continue progressive RC strengthening and scapular stabilization strengthening with emphasis on correct scapular mechanics, especially with use of bow. Plan of Care Dates Plan of Care Start Date 04/11/23 Plan of Care End Date 05/19/22 Electronically Signed by: Smita Anand, ANGELINA 05/15/23 0836 If you are in agreement with this Plan of Care, please return a signed and dated copy. I have reviewed this Plan of Care and certify that the skilled therapy services above are required to meet the patient?s needs. Physician Signature Date Printed Name and Credentials Clinical Instructor Signature Printed Name and Credentials
--- NOTE | 2023-05-12 08:36 | PT.OTRE ---
Current Diagnoses Pain in unspecified shoulder (05/12/23) Surgical History (Last Reviewed 08/11/21 @ 20:44 by Letty Ortiz OPERATION RESEARCH ANALYST) Anesthesia Status post hernia repair (~1963) Visit Care Team Role Provider Type Jessie Hall MD Attending Provider Physician Family Provider Primary Care Provider Referring Provider Specialty: Family Practice Address: [address] [place] [address], [id number] Email: [email or web address] Physical Therapy Re-Evaluation PT-OP-A Visit Information Start: 03/02/23 11:26 Freq: Status: Active Protocol: Document 05/12/23 09:41 SAK (Rec: 05/12/23 10:32 SAK [id number]) Out-Patient Physical Therapy Visit Information Visit Information Visit Type Treatment Note Visit Start Time 09:45 Visit Stop Time 10:30 Total Visit Minutes 45 Visit Number 13 Evaluation Information Evaluation Date 03/02/23 PT-OP-B Current Condition Start: 03/02/23 11:26 Freq: Status: Active Protocol: Document 05/12/23 09:41 SAK (Rec: 05/12/23 10:32 SAK [id number]) Current Condition History of Current Condition Onset Date 30 years ago Current Complaints R shoulder History of Current Condition Pt thinks that he tore something in his shoulder 30 years ago and never fixed it. Pt reports that he fell on his R shoulder about a year ago and it has been painful since. Pt reports that his shoulder feels weak. Pt reports that he has an independent gym program, but not sure what to do to progress his shoulder strength and mobility without increasing pain. Pt likes to bow chen, though has difficulty using his bow currently. Prior Treatments and Tests Pt had an x-ray a few years ago, pt unsure of results PT-OP-C Subjective Start: 03/02/23 11:26 Freq: Status: Active Protocol: Document 05/12/23 09:41 SAK (Rec: 05/12/23 10:32 SAK [id number]) OP-PT Subjective Patient Comments Patient Comments Hasn't had much pain in shoulder, but has in muscle around shoulder blade. Patient reports hasn't been compliant to HEP during the holidays. right shoulder most painful when laying on left side, is better able to lay on right side. PT-OP-K Range of Motion Start: 03/02/23 11:26 Freq: Status: Active Protocol: Document 03/02/23 12:20 AM (Rec: 03/02/23 18:03 AM [id number]) Shoulder Goniometric Range of Motion Shoulder Measured in Degrees Right Active Flexion 140 Abduction 155 Internal Rotation Behind Back (text) L1 Comments Aply ER: T1 Left Active Flexion 145 Abduction 155 Internal Rotation Behind Back (text) T9 Comments Aply ER: T5 PT-OP-L Special Tests Start: 03/02/23 11:26 Freq: Status: Active Protocol: Document 03/02/23 12:20 AM (Rec: 03/02/23 18:03 AM [id number]) Special Tests Shoulder Special Tests IR/Horizontal ADD Impingement Test Results + Empty Can Test Results negative on R PT-OP-M Strength Start: 03/02/23 11:26 Freq: Status: Active Protocol: Document 03/25/23 09:04 AM (Rec: 03/25/23 10:58 AM [id number]) Scapula Strength Scapula Manual Muscle Testing Right Comments MT: 4- on R LT: 3+ on R PT-OP-Q Treatments Start: 03/02/23 11:26 Freq: Status: Active Protocol: Document 05/12/23 09:41 SAK (Rec: 05/12/23 10:32 SAK [id number]) Cardio Equipment Upper Body Ergometer (UBE) Duration (Minutes) 6 RPM 100 Seat Position 11 Height 2.5 Other fwd and back Therapeutic Exercises Prone Exercises Low trap Prone Exercise Name Y Side bilateral Resistance 1# Equipment Used 65 cm ball Reps/Minutes 10x2 Shoulder extension Prone Exercise Name I Side bilateral Resistance 2# Equipment Used 65 cm ball Reps/Minutes 2x10 Comments cues for straight out, scap engagement Mid Trap Side bilateral Resistance 2# Equipment Used 65 cm ball Reps/Minutes 2x10 Comments cues for decreased UT involvement Sidelying Exercises open book Reps/Minutes 3x Comments cues for segmental movement Manual Therapy Treatment Other Other Manual Treatments MMT, ROM testing right shoulder Self-Care/Home Management Treatment Education Other Education use of tennis/raquetball, Theracane for self massage PT-OP-R Modalities Start: 03/02/23 11:26 Freq: Status: Active Protocol: Document 04/11/23 11:19 NBM (Rec: 04/11/23 13:06 NB [id number]) Hot Pack/Cold Pack Treatment Cold Pack Location right shoulder Patient Position Hooklying Treatment Duration (minutes) 10 Patient Tolerance Good PT-OP-T Assessment and Plan Start: 03/02/23 11:26 Freq: Status: Active Protocol: Document 05/12/23 09:41 SAK (Rec: 05/12/23 10:32 SAK [id number]) Physical Therapy Assessment Goals Scapular strength Impairment Pt with scapular strength of 3 -/5 LT and 3+/5 MT strength Short Term Goal (STG) Pt with 3+/5 lower trap strength, 4-/5 middle trap strength. 03/25/23: Goal met STG Duration goal met Long-Term Goal (LTG) Pt with 4/5 middle trap and lower trap strength 04/07/23: assess next session 04/11/23: lower trap 4-/5, midle trap 4/5, good goal progress 05/12/22: lower trap 4-/5, middle trap 4+/5, goal progress LTG Duration 06/19/23 Quick Dash Impairment Pt with Quick Dash score of 20 % Breaker Boss Goal (LTG) Pt with Quick Dash score of 10 % 04/07/23: patient reporting progress, not filled out today 04/11/23: Quickdash score 12%, good goal progress 05/12/23: Quickdash score 11%, most painful with sleeping. Problem-solving today regarding bed positioning. LTG Duration 06/12/23 HEP Long-Term Goal (LTG) Pt independent with HEP. 04/07/23: good goal progress, continue to modify and progress. Reviewed current HEP today with some corrections and cues required for safe performance 05/12/23: Continue modifications and progressions of exercises . LTG Duration 06/12/23 [place] Impairment Pt unable to use bow without increase in shoulder pain. Breaker Boss Goal (LTG) Pt able to use bow with proper scapulohumeral mechanics without production of increased pain. 04/07/23: goal progress, still some pain though decreased with simulation using weight machine and theraband. Hasn 't tried yet with actual bow 04/11/23: Working on good bow mechanics including use of video with LINING REPAIRER for shoulder protection and proper form. Needs continued work and cues 05/12/23: patien to bring bow next session for functional training. Have done further work using video of correct form to help patient decrease shoulder strain with this activity, requires cues for scapular activation. LTG Duration 05/19/23 Progress Towards Goals Progress Towards Goals Progressing Toward Goals Assessment Summary Assessment Patient continues to progress with decreased pain and improved function right UE. Goals remaining are for patient to be able to sleep without increased shoulder pain and to be able to return to shooting his bow without shoulder pain. He continues to improve but needs cues for correct scapular activation for shoulder stability and healthy function. Working on problem-solving bed positioning. Patient is highly motivated. Feel he would benefit from continued skilled physical therapy. Discussed POC and patient in agreement. Physical Therapy Plan Frequency and Duration Frequency of Treatment 2x/Week Duration of treatment (weeks) 6 Plan of Care Start Date 04/11/23 Plan of Care End Date 05/19/22 Therapeutic Interventions Therapeutic Interventions Coordination Training,Home Exercise Program,Joint Mobilizations,Manual Therapy, Neuromuscular Re-education, Patient/Caregiver Education, Self-Care/Home Management,Soft Tissue Mobilization,Taping, Therapeutic Activities, Therapeutic Exercises Modalities Cold Pack/Ice Massage,Electric Stimulation,Hot Packs, Ultrasound Next Visit Focus/Plan Next Note Type Treatment Note Next Visit Plan Continue progressive RC strengthening and scapular stabilization strengthening with emphasis on correct scapular mechanics, especially with use of bow.
--- NOTE | 2023-05-16 12:27 | PT.OTN ---
Addendum entered and electronically signed by Brigida Hurley 05/16/23 14:17: PT-OP-Q Treatments Start: 03/02/23 11:26 Freq: Status: Active Protocol: Document 05/16/23 11:21 NBM (Rec: 05/16/23 12:26 NBM [id number]) Cardio Equipment Upper Body Ergometer (UBE) Duration (Minutes) 8 RPM 100 Seat Position 11 Height 4 Other fwd and back Original Note: Current Diagnoses Pain in unspecified shoulder (05/16/23) Physical Therapy Treatment Note PT-OP-A Visit Information Start: 03/02/23 11:26 Freq: Status: Active Protocol: Document 05/16/23 11:21 NBM (Rec: 05/16/23 12:26 NBM [id number]) Out-Patient Physical Therapy Visit Information Visit Information Visit Type Treatment Note Visit Start Time 11:20 Visit Stop Time 12:10 Total Visit Minutes 50 Visit Number 14 Number of CRITICAL CARE CLINICAL NURSE SPECIALIST Visits 1 PT-OP-B Current Condition Start: 03/02/23 11:26 Freq: Status: Active Protocol: Document 05/12/23 09:41 SAK (Rec: 05/12/23 10:32 SAK [id number]) Current Condition History of Current Condition Onset Date 30 years ago Current Complaints R shoulder History of Current Condition Pt thinks that he tore something in his shoulder 30 years ago and never fixed it. Pt reports that he fell on his R shoulder about a year ago and it has been painful since. Pt reports that his shoulder feels weak. Pt reports that he has an independent gym program, but not sure what to do to progress his shoulder strength and mobility without increasing pain. Pt likes to bow chen, though has difficulty using his bow currently. Prior Treatments and Tests Pt had an x-ray a few years ago, pt unsure of results PT-OP-C Subjective Start: 03/02/23 11:26 Freq: Status: Active Protocol: Document 05/16/23 11:21 NBM (Rec: 05/16/23 12:26 NBM [id number]) OP-PT Subjective Patient Comments Patient Comments Pt reports arm is doing okay. He doesn't do all of his ex's every day but still does cable ex's at gym. He can't find a machine to simulate the arm bike. He thinks if he did all his ex's regularly he'd see a marked difference. The ex's are boring to sit for 20 minutes, but when he was hauling firewood it felt great . He brings his compound bow in today. PT-OP-K Range of Motion Start: 03/02/23 11:26 Freq: Status: Active Protocol: Document 03/02/23 12:20 AM (Rec: 03/02/23 18:03 AM [id number]) Shoulder Goniometric Range of Motion Shoulder Right Active Flexion 140 Abduction 155 Internal Rotation Behind Back (text) L1 Comments Aply ER: T1 Left Active Flexion 145 Abduction 155 Internal Rotation Behind Back (text) T9 Comments Aply ER: T5 PT-OP-L Special Tests Start: 03/02/23 11:26 Freq: Status: Active Protocol: Document 03/02/23 12:20 AM (Rec: 03/02/23 18:03 AM [id number]) Special Tests Shoulder Special Tests IR/Horizontal ADD Impingement Test Results + Empty Can Test Results negative on R PT-OP-M Strength Start: 03/02/23 11:26 Freq: Status: Active Protocol: Document 03/25/23 09:04 AM (Rec: 03/25/23 10:58 AM [id number]) Scapula Strength Scapula Manual Muscle Testing Right Comments MT: 4- on R LT: 3+ on R PT-OP-Q Treatments Start: 03/02/23 11:26 Freq: Status: Active Protocol: Document 05/16/23 11:21 NBM (Rec: 05/16/23 12:26 NBM [id number]) Therapeutic Exercises Prone Exercises Low trap Prone Exercise Name Y Side bilateral Resistance 1# Equipment Used 65 cm ball Reps/Minutes x10, x5 (dc'd d/t cramp) Comments cues for scapular resetting ea rep, breath Shoulder extension Prone Exercise Name I Side bilateral Resistance 2# Equipment Used 65 cm ball Reps/Minutes 2x10 Comments cues for straight out, scap engagement, breath Mid Trap Prone Exercise Name T Side bilateral Resistance 2# Equipment Used 65 cm ball Reps/Minutes 2x10 Comments cues for decreased UT involvement, breath Sidelying Exercises open book Side bilateral Reps/Minutes 5x Comments cues for segmental movement, breathwork Sleeper stretch Reps/Minutes 2x30 sec Flexion Side right Resistance 2# Reps/Minutes x10 Comments with manual scapular mob Abduction Side right Resistance 2 Reps/Minutes x10 Comments cues for eccentric control ER Side right Resistance 2 Equipment Used towel at elbow Reps/Minutes x10 Comments cues for scap stab, slow speed Standing Exercises Standing row Standing Exercise Name 1. Drawing Compound bow 2. Cable machine. Reps/Minutes 1. (55# once fully drawn)x3 2. 30#x8 Comments verbal and manual cues for scapular control and LT Self-Care/Home Management Treatment Education Other Education Discussion re: incorporating HEP at home with pt expressing increased understanding for purpose of ex's in reaching goals, especially for using compound bow. Education to pt for importance of breathwork for core activation with ex's instead of breathholding which he has a tendency to do. PT-OP-R Modalities Start: 03/02/23 11:26 Freq: Status: Active Protocol: Document 04/11/23 11:19 [facility] (Rec: 04/11/23 13:06 [facility] [id number]) Hot Pack/Cold Pack Treatment Cold Pack Location right shoulder Patient Position Hooklying Treatment Duration (minutes) 10 Patient Tolerance Good PT-OP-T Assessment and Plan Start: 03/02/23 11:26 Freq: Status: Active Protocol: Document 05/16/23 11:21 [facility] (Rec: 05/16/23 12:26 [facility] [id number]) Physical Therapy Assessment Impairments Impairments Activity Tolerance,Functional Activities,Functional Mobility ,Pain,Posture,ROM,Sensation, Soft Tissue Mobility,Strength Goals Scapular strength Impairment Pt with scapular strength of 3 -/5 LT and 3+/5 MT strength Short Term Goal (STG) Pt with 3+/5 lower trap strength, 4-/5 middle trap strength. 03/25/23: Goal met STG Duration goal met Classification Clerk Goal (LTG) Pt with 4/5 middle trap and lower trap strength 04/07/23: assess next session 04/11/23: lower trap 4-/5, midle trap 4/5, good goal progress 05/12/22: lower trap 4-/5, middle trap 4+/5, goal progress LTG Duration 06/19/23 Quick Dash Impairment Pt with Quick Dash score of 20 % Mcfp Goal (LTG) Pt with Quick Dash score of 10 % 04/07/23: patient reporting progress, not filled out today 04/11/23: Quickdash score 12%, good goal progress 05/12/23: Quickdash score 11%, most painful with sleeping. Problem-solving today regarding bed positioning. LTG Duration 06/12/23 HEP Mcfp Goal (LTG) Pt independent with HEP. 04/07/23: good goal progress, continue to modify and progress. Reviewed current HEP today with some corrections and cues required for safe performance 05/12/23: Continue modifications and progressions of exercises . 05/16/23: Continue modifications and progressions of exercises : focus on prone resisted ex's and supine/s/l ex's with breathwork. LTG Duration 06/12/23 [place] Impairment Pt unable to use bow without increase in shoulder pain. Classification Clerk Goal (LTG) Pt able to use bow with proper scapulohumeral mechanics without production of increased pain. 04/07/23: goal progress, still some pain though decreased with simulation using weight machine and theraband. Hasn 't tried yet with actual bow 04/11/23: Working on good bow mechanics including use of video with CRITICAL CARE CLINICAL NURSE SPECIALIST for shoulder protection and proper form. Needs continued work and cues 05/12/23: patien to bring bow next session for functional training. Have done further work using video of correct form to help patient decrease shoulder strain with this activity, requires cues for scapular activation. 05/16/23: Pt demonstrates form w / bow and is unable to draw bow fully (up to 55#) without UT overactivation compensation . LTG Duration 05/19/23 Progress Towards Goals Progress Towards Goals Progressing Toward Goals Assessment Summary Assessment Treatment focus on drawing compound bow, breathwork, education and supine/sidelying ex's for HEP. Significant time spent with Edmund discussing incorporating HEP at home with pt expressing increased understanding for purpose of ex's in reaching goals and improving motivation for HEP, especially for using compound bow. Pt demonstrates form w/ bow x3 and is unable to draw bow fully up to 55# without UT overactivation compensation. With repetition and cueing he is able to draw 30# on cable column with correct form. Edmund demonstrates improved self- awareness of UT overactivation and breathwork during prone resisted ex's with significant cueing start of session but good carryover by end of session. Education to pt for importance of breathwork with ex's instead of breathholding which he has a tendency to do. Physical Therapy Plan Frequency and Duration Frequency of Treatment 2x/Week Duration of treatment (weeks) 6 Plan of Care Start Date 04/11/23 Plan of Care End Date 05/19/22 Therapeutic Interventions Therapeutic Interventions Coordination Training,Home Exercise Program,Joint Mobilizations,Manual Therapy, Neuromuscular Re-education, Patient/Caregiver Education, Self-Care/Home Management,Soft Tissue Mobilization,Taping, Therapeutic Activities, Therapeutic Exercises Modalities Cold Pack/Ice Massage,Electric Stimulation,Hot Packs, Ultrasound Next Visit Focus/Plan Next Note Type Treatment Note Next Visit Plan Continue progressive RC strengthening and scapular stabilization strengthening with emphasis on correct scapular mechanics, especially with use of bow.
--- NOTE | 2023-05-31 08:09 | PT.OTRE ---
Current Diagnoses Pain in unspecified shoulder (05/31/23) Surgical History (Last Reviewed 08/11/21 @ 20:44 by Letty Ortiz [facility]) Anesthesia Status post hernia repair (~1963) Visit Care Team Role Provider Type Jessie Hall MD Attending Provider Physician Family Provider Primary Care Provider Referring Provider Specialty: Family Practice Address: [address] [place] [address], [id number] Email: [email or web address] Physical Therapy Re-Evaluation PT-OP-A Visit Information Start: 03/02/23 11:26 Freq: Status: Active Protocol: Document 05/31/23 09:49 SAK (Rec: 05/31/23 10:30 SAK [id number]) Out-Patient Physical Therapy Visit Information Visit Information Visit Type Treatment Note Visit Start Time 09:49 Visit Stop Time 10:30 Total Visit Minutes 41 Visit Number 15 Evaluation Information Evaluation Date 03/02/23 PT-OP-B Current Condition Start: 03/02/23 11:26 Freq: Status: Active Protocol: Document 05/12/23 09:41 SAK (Rec: 05/12/23 10:32 SAK [id number]) Current Condition History of Current Condition Onset Date 30 years ago Current Complaints R shoulder History of Current Condition Pt thinks that he tore something in his shoulder 30 years ago and never fixed it. Pt reports that he fell on his R shoulder about a year ago and it has been painful since. Pt reports that his shoulder feels weak. Pt reports that he has an independent gym program, but not sure what to do to progress his shoulder strength and mobility without increasing pain. Pt likes to bow chen, though has difficulty using his bow currently. Prior Treatments and Tests Pt had an x-ray a few years ago, pt unsure of results PT-OP-C Subjective Start: 03/02/23 11:26 Freq: Status: Active Protocol: Document 05/31/23 09:49 SAK (Rec: 05/31/23 10:30 SAK [id number]) OP-PT Subjective Patient Comments Patient Comments Was sick 2x since last seen, hasn't done very much. Minimal shoulder pain due to not doing much of anything including exercises. PT-OP-K Range of Motion Start: 03/02/23 11:26 Freq: Status: Active Protocol: Document 03/02/23 12:20 AM (Rec: 03/02/23 18:03 AM [id number]) Shoulder Goniometric Range of Motion Shoulder Measured in Degrees Right Active Flexion 140 Abduction 155 Internal Rotation Behind Back (text) L1 Comments Aply ER: T1 Left Active Flexion 145 Abduction 155 Internal Rotation Behind Back (text) T9 Comments Aply ER: T5 PT-OP-L Special Tests Start: 03/02/23 11:26 Freq: Status: Active Protocol: Document 03/02/23 12:20 AM (Rec: 03/02/23 18:03 AM [id number]) Special Tests Shoulder Special Tests IR/Horizontal ADD Impingement Test Results + Empty Can Test Results negative on R PT-OP-M Strength Start: 03/02/23 11:26 Freq: Status: Active Protocol: Document 03/25/23 09:04 AM (Rec: 03/25/23 10:58 AM [id number]) Scapula Strength Scapula Manual Muscle Testing Right Comments MT: 4- on R LT: 3+ on R PT-OP-Q Treatments Start: 03/02/23 11:26 Freq: Status: Active Protocol: Document 05/31/23 09:49 SAK (Rec: 05/31/23 10:30 SAK [id number]) Cardio Equipment Upper Body Ergometer (UBE) Duration (Minutes) 6 RPM 100 Seat Position 11 Height 4 Other fwd and back Therapeutic Exercises Prone Exercises Low trap Prone Exercise Name Y Side bilateral Resistance 1# Equipment Used 65 cm ball Reps/Minutes x10, x5 (dc'd d/t cramp) Comments cues for scapular resetting ea rep, breath Shoulder extension Prone Exercise Name I Side bilateral Resistance 2# Equipment Used 65 cm ball Reps/Minutes 2x10 Comments cues for straight out, scap engagement, breath Mid Trap Prone Exercise Name T Side bilateral Resistance 2# Equipment Used 65 cm ball Reps/Minutes 2x10 Comments cues for decreased UT involvement, breath Sidelying Exercises scap clocks Sidelying Exercise Name 12/6, 3/9 Reps/Minutes 10x ea Comments manual cues then resistance open book Side bilateral Reps/Minutes 5x Comments cues for segmental movement, breathwork Flexion Side right Reps/Minutes x10 Comments with manual scapular mob ER Side right Resistance 2 Equipment Used towel at elbow Reps/Minutes x10 Comments cues for scap stab, slow speed Sitting Exercises pulleys Sitting Exercise Name flexion and scaption Side bilateral Reps/Minutes 5x5 ea Comments cues for incorporating breathing Manual Therapy Treatment Other Other Manual Treatments ROM and strength testing Self-Care/Home Management Treatment Education Patient Education Home Exercise Program,Posture Other Education gradual resumption of HEP PT-OP-R Modalities Start: 03/02/23 11:26 Freq: Status: Active Protocol: Document 04/11/23 11:19 NBM (Rec: 04/11/23 13:06 NBM [id number]) Hot Pack/Cold Pack Treatment Cold Pack Location right shoulder Patient Position Hooklying Treatment Duration (minutes) 10 Patient Tolerance Good PT-OP-T Assessment and Plan Start: 03/02/23 11:26 Freq: Status: Active Protocol: Document 05/31/23 09:49 SAK (Rec: 05/31/23 10:30 SAK [id number]) Physical Therapy Assessment Impairments Impairments Activity Tolerance,Functional Activities,Functional Mobility ,Pain,Posture,ROM,Sensation, Soft Tissue Mobility,Strength Goals Scapular strength Impairment Pt with scapular strength of 3 -/5 LT and 3+/5 MT strength Short Term Goal (STG) Pt with 3+/5 lower trap strength, 4-/5 middle trap strength. 03/25/23: Goal met STG Duration goal met Nurse Technician Goal (LTG) Pt with 4/5 middle trap and lower trap strength 04/07/23: assess next session 04/11/23: lower trap 4-/5, midle trap 4/5, good goal progress 05/12/22: lower trap 4-/5, middle trap 4+/5, goal progress 05/31/23: mid trap 4/5, lower trap 4-/5 LTG Duration 07/18/23 Quick Dash Impairment Pt with Quick Dash score of 20 % Nurse Technician Goal (LTG) Pt with Quick Dash score of 10 % 04/07/23: patient reporting progress, not filled out today 04/11/23: Quickdash score 12%, good goal progress 05/12/23: Quickdash score 11%, most painful with sleeping. Problem-solving today regarding bed positioning. 05/31/23: Quickdash LTG Duration 07/18/23 HEP Usp Goal (LTG) Pt independent with HEP. 04/07/23: good goal progress, continue to modify and progress. Reviewed current HEP today with some corrections and cues required for safe performance 05/12/23: Continue modifications and progressions of exercises . LTG Duration 07/18/23 [place] Impairment Pt unable to use bow without increase in shoulder pain. Nurse Technician Goal (LTG) Pt able to use bow with proper scapulohumeral mechanics without production of increased pain. 04/07/23: goal progress, still some pain though decreased with simulation using weight machine and theraband. Hasn 't tried yet with actual bow 04/11/23: Working on good bow mechanics including use of video with EXECUTIVE BUSINESS COACH for shoulder protection and proper form. Needs continued work and cues 05/12/23: patien to bring bow next session for functional training. Have done further work using video of correct form to help patient decrease shoulder strain with this activity, requires cues for scapular activation. LTG Duration 07/18/23 Progress Towards Goals Progress Towards Goals Progressing Toward Goals Assessment Summary Assessment Patient continues to progress with decreased pain and improved function right UE. Goals remaining are for patient to be able to sleep without increased shoulder pain and to be able to return to shooting his bow without shoulder pain. He continues to improve but needs cues for correct scapular activation for shoulder stability and healthy function. Working on problem-solving bed positioning. Patient is highly motivated. Feel he would benefit from continued skilled physical therapy. Discussed POC and patient in agreement. Physical Therapy Plan Frequency and Duration Frequency of Treatment 2x/Week Duration of treatment (weeks) 6 Plan of Care Start Date 05/19/23 Plan of Care End Date 07/18/23 Therapeutic Interventions Therapeutic Interventions Coordination Training,Home Exercise Program,Joint Mobilizations,Manual Therapy, Neuromuscular Re-education, Patient/Caregiver Education, Self-Care/Home Management,Soft Tissue Mobilization,Taping, Therapeutic Activities, Therapeutic Exercises Modalities Cold Pack/Ice Massage,Electric Stimulation,Hot Packs, Ultrasound Next Visit Focus/Plan Next Note Type Treatment Note Next Visit Plan Continue progressive RC strengthening and scapular stabilization strengthening with emphasis on correct scapular mechanics, especially with use of bow.
--- NOTE | 2023-05-31 08:10 | PT.OPPOC ---
Physical, Occupational & Speech Therapy At [facility] Current Diagnoses Pain in unspecified shoulder (05/31/23) Visit Care Team Role Provider Type Jessie Hall MD Attending Provider Physician Family Provider Primary Care Provider Referring Provider Specialty: Family Practice Address: [address] [place] [address], [id number] Email: [email or web address] Plan Of Care PT-OP-T Assessment and Plan Start: 03/02/23 11:26 Freq: Status: Active Protocol: Document 05/31/23 09:49 SAK (Rec: 05/31/23 10:30 SAK [id number]) Physical Therapy Assessment Impairments Impairments Activity Tolerance,Functional Activities,Functional Mobility ,Pain,Posture,ROM,Sensation, Soft Tissue Mobility,Strength Goals Scapular strength Impairment Pt with scapular strength of 3 -/5 LT and 3+/5 MT strength Short Term Goal (STG) Pt with 3+/5 lower trap strength, 4-/5 middle trap strength. 03/25/23: Goal met STG Duration goal met Custodial Goal (LTG) Pt with 4/5 middle trap and lower trap strength 04/07/23: assess next session 04/11/23: lower trap 4-/5, midle trap 4/5, good goal progress 05/12/22: lower trap 4-/5, middle trap 4+/5, goal progress 05/31/23: mid trap 4/5, lower trap 4-/5 LTG Duration 07/18/23 [place] Impairment Pt with Quick Dash score of 20 % Real Time Analyst Goal (LTG) Pt with Quick Dash score of 10 % 04/07/23: patient reporting progress, not filled out today 04/11/23: Quickdash score 12%, good goal progress 05/12/23: Quickdash score 11%, most painful with sleeping. Problem-solving today regarding bed positioning. 05/31/23: Quickdash LTG Duration 07/18/23 HEP Real Time Analyst Goal (LTG) Pt independent with HEP. 04/07/23: good goal progress, continue to modify and progress. Reviewed current HEP today with some corrections and cues required for safe performance 05/12/23: Continue modifications and progressions of exercises . LTG Duration 07/18/23 [place] Impairment Pt unable to use bow without increase in shoulder pain. Real Time Analyst Goal (LTG) Pt able to use bow with proper scapulohumeral mechanics without production of increased pain. 04/07/23: goal progress, still some pain though decreased with simulation using weight machine and theraband. Hasn 't tried yet with actual bow 04/11/23: Working on good bow mechanics including use of video with CABLE REELER for shoulder protection and proper form. Needs continued work and cues 05/12/23: patien to bring bow next session for functional training. Have done further work using video of correct form to help patient decrease shoulder strain with this activity, requires cues for scapular activation. LTG Duration 07/18/23 Progress Towards Goals Progress Towards Goals Progressing Toward Goals Assessment Summary Assessment Patient continues to progress with decreased pain and improved function right UE. Goals remaining are for patient to be able to sleep without increased shoulder pain and to be able to return to shooting his bow without shoulder pain. He continues to improve but needs cues for correct scapular activation for shoulder stability and healthy function. Working on problem-solving bed positioning. Patient is highly motivated. Feel he would benefit from continued skilled physical therapy. Discussed POC and patient in agreement. Physical Therapy Plan Frequency and Duration Frequency of Treatment 2x/Week Duration of treatment (weeks) 6 Plan of Care Start Date 05/19/23 Plan of Care End Date 07/18/23 Therapeutic Interventions Therapeutic Interventions Coordination Training,Home Exercise Program,Joint Mobilizations,Manual Therapy, Neuromuscular Re-education, Patient/Caregiver Education, Self-Care/Home Management,Soft Tissue Mobilization,Taping, Therapeutic Activities, Therapeutic Exercises Modalities Cold Pack/Ice Massage,Electric Stimulation,Hot Packs, Ultrasound Next Visit Focus/Plan Next Note Type Treatment Note Next Visit Plan Continue progressive RC strengthening and scapular stabilization strengthening with emphasis on correct scapular mechanics, especially with use of bow. Plan of Care Dates Plan of Care Start Date 05/19/23 Plan of Care End Date 07/18/23 Electronically Signed by: Smita Anand, PT 06/01/23 [id number] If you are in agreement with this Plan of Care, please return a signed and dated copy. I have reviewed this Plan of Care and certify that the skilled therapy services above are required to meet the patient?s needs. Physician Signature Date Printed Name and Credentials Clinical Instructor Signature Printed Name and Credentials
--- NOTE | 2023-06-08 16:46 | PT.OTN ---
Current Diagnoses Pain in unspecified shoulder (06/08/23) Physical Therapy Treatment Note PT-OP-A Visit Information Start: 03/02/23 11:26 Freq: Status: Active Protocol: Document 06/08/23 13:50 [facility] (Rec: 06/08/23 14:28 [facility] [id number]) Out-Patient Physical Therapy Visit Information Visit Information Visit Type Treatment Note Visit Start Time 13:50 Visit Stop Time 14:42 Visit Number 16 Evaluation Information Evaluation Date 03/02/23 PT-OP-B Current Condition Start: 03/02/23 11:26 Freq: Status: Active Protocol: Document 05/12/23 09:41 SAK (Rec: 05/12/23 10:32 [facility] [id number]) Current Condition History of Current Condition Onset Date 30 years ago Current Complaints R shoulder History of Current Condition Pt thinks that he tore something in his shoulder 30 years ago and never fixed it. Pt reports that he fell on his R shoulder about a year ago and it has been painful since. Pt reports that his shoulder feels weak. Pt reports that he has an independent gym program, but not sure what to do to progress his shoulder strength and mobility without increasing pain. Pt likes to bow chen, though has difficulty using his bow currently. Prior Treatments and Tests Pt had an x-ray a few years ago, pt unsure of results PT-OP-C Subjective Start: 03/02/23 11:26 Freq: Status: Active Protocol: Document 06/08/23 13:50 [facility] (Rec: 06/08/23 14:28 [facility] [id number]) OP-PT Subjective Patient Comments Patient Comments 4-5 days ago significant pain under both shoulder blades, unsure why except for splitting a carrying logs. couldn't sleep. Used a massager, took Ibuprofen, tried a few exercises. still a little more sore. Doing some of the exercises, about 30%. Tried bow, it was a little easier. PT-OP-K Range of Motion Start: 03/02/23 11:26 Freq: Status: Active Protocol: Document 03/02/23 12:20 AM (Rec: 03/02/23 18:03 AM [id number]) Shoulder Goniometric Range of Motion Shoulder Right Active Flexion 140 Abduction 155 Internal Rotation Behind Back (text) L1 Comments Aply ER: T1 Left Active Flexion 145 Abduction 155 Internal Rotation Behind Back (text) T9 Comments Aply ER: T5 PT-OP-L Special Tests Start: 03/02/23 11:26 Freq: Status: Active Protocol: Document 03/02/23 12:20 AM (Rec: 03/02/23 18:03 AM [id number]) Special Tests Shoulder Special Tests IR/Horizontal ADD Impingement Test Results + Empty Can Test Results negative on R PT-OP-M Strength Start: 03/02/23 11:26 Freq: Status: Active Protocol: Document 03/25/23 09:04 AM (Rec: 03/25/23 10:58 AM [id number]) Scapula Strength Scapula Manual Muscle Testing Right Comments MT: 4- on R LT: 3+ on R PT-OP-Q Treatments Start: 03/02/23 11:26 Freq: Status: Active Protocol: Document 06/08/23 13:50 SAK (Rec: 06/08/23 14:28 SAK [id number]) Cardio Equipment Upper Body Ergometer (UBE) Duration (Minutes) 6 RPM 60 Seat Position 11 Height 4 Other fwd and back Therapeutic Exercises Supine Exercises Serratus punch Resistance 2# Equipment Used foam roller Reps/Minutes 2x10 Prone Exercises Low trap Prone Exercise Name Y Side bilateral Resistance 1# Equipment Used 65 cm ball Reps/Minutes 10x2 Comments manual facil for scapular upward rotation Shoulder extension Prone Exercise Name I Side bilateral Resistance 2# Equipment Used 65 cm ball Reps/Minutes 2x10 Comments cues for straight out, scap engagement, breath Mid Trap Prone Exercise Name T Side bilateral Resistance 2# Equipment Used 65 cm ball Reps/Minutes 2x10 Comments cues for decreased UT involvement, breath Sidelying Exercises scap clocks Sidelying Exercise Name 12/6, 3/9 Reps/Minutes 10x ea Comments manual cues then resistance Sitting Exercises shld shrugs,rolls Reps/Minutes 5x ea pulleys Sitting Exercise Name flexion and scaption Side bilateral Reps/Minutes 5x5 ea Comments cues for incorporating breathing Other Exercises cat/cow Reps/Minutes 5x Manual Therapy Treatment Soft Tissue Mobilization Scapular muscles Body Location R periscapular muscles, posterior deltoid, ls Mobilization Type Myofascial Release,Trigger Point Release Intensity/Depth Moderate Body Position Sidelying Self-Care/Home Management Treatment Education Patient Education Home Exercise Program,Posture Other Education need for scapular mobilization exercises prior to prone strengthening PT-OP-R Modalities Start: 03/02/23 11:26 Freq: Status: Active Protocol: Document 04/11/23 11:19 NBM (Rec: 04/11/23 13:06 NBM [id number]) Hot Pack/Cold Pack Treatment Cold Pack Location right shoulder Patient Position Hooklying Treatment Duration (minutes) 10 Patient Tolerance Good PT-OP-T Assessment and Plan Start: 03/02/23 11:26 Freq: Status: Active Protocol: Document 06/08/23 13:50 SAK (Rec: 06/08/23 14:28 SAK [id number]) Physical Therapy Assessment Impairments Impairments Activity Tolerance,Functional Activities,Functional Mobility ,Pain,Posture,ROM,Sensation, Soft Tissue Mobility,Strength Goals Scapular strength Impairment Pt with scapular strength of 3 -/5 LT and 3+/5 MT strength Short Term Goal (STG) Pt with 3+/5 lower trap strength, 4-/5 middle trap strength. 03/25/23: Goal met STG Duration goal met Penitentiary Goal (LTG) Pt with 4/5 middle trap and lower trap strength 04/07/23: assess next session 04/11/23: lower trap 4-/5, midle trap 4/5, good goal progress 05/12/22: lower trap 4-/5, middle trap 4+/5, goal progress 05/31/23: mid trap 4/5, lower trap 4-/5 LTG Duration 07/18/23 [place] Impairment Pt with Quick Dash score of 20 % Penitentiary Goal (LTG) Pt with Quick Dash score of 10 % 04/07/23: patient reporting progress, not filled out today 04/11/23: Quickdash score 12%, good goal progress 05/12/23: Quickdash score 11%, most painful with sleeping. Problem-solving today regarding bed positioning. 05/31/23: Quickdash LTG Duration 07/18/23 HEP Penitentiary Goal (LTG) Pt independent with HEP. 04/07/23: good goal progress, continue to modify and progress. Reviewed current HEP today with some corrections and cues required for safe performance 05/12/23: Continue modifications and progressions of exercises . LTG Duration 07/18/23 [place] Impairment Pt unable to use bow without increase in shoulder pain. Penitentiary Goal (LTG) Pt able to use bow with proper scapulohumeral mechanics without production of increased pain. 04/07/23: goal progress, still some pain though decreased with simulation using weight machine and theraband. Hasn 't tried yet with actual bow 04/11/23: Working on good bow mechanics including use of video with MANAGER DOCUMENT for shoulder protection and proper form. Needs continued work and cues 05/12/23: patien to bring bow next session for functional training. Have done further work using video of correct form to help patient decrease shoulder strain with this activity, requires cues for scapular activation. LTG Duration 07/18/23 Progress Towards Goals Progress Towards Goals Progressing Toward Goals Assessment Summary Assessment Steady improvement, most challenging exercise prone Y with noted dec upward rotation scapula today, improved after pulleys and manual therapy. Cause of recent flare appears likely to physical activity though pt reports previously able to do without difficulty. More time on manual work today due to tightness, encourage useof ball for self massage. Physical Therapy Plan Frequency and Duration Frequency of Treatment 2x/Week Duration of treatment (weeks) 6 Plan of Care Start Date 05/19/23 Plan of Care End Date 07/18/23 Therapeutic Interventions Therapeutic Interventions Coordination Training,Home Exercise Program,Joint Mobilizations,Manual Therapy, Neuromuscular Re-education, Patient/Caregiver Education, Self-Care/Home Management,Soft Tissue Mobilization,Taping, Therapeutic Activities, Therapeutic Exercises Modalities Cold Pack/Ice Massage,Electric Stimulation,Hot Packs, Ultrasound Next Visit Focus/Plan Next Note Type Treatment Note Next Visit Plan Continue progressive RC strengthening and scapular stabilization strengthening with emphasis on correct scapular mechanics, especially with use of bow.
--- NOTE | 2023-06-15 09:08 | PT-OP ANOTE ---
cancelled due to being called away on work.
--- NOTE | 2023-07-28 11:40 | PT.OTRE ---
Current Diagnoses Pain in unspecified shoulder (07/28/23) Surgical History (Last Reviewed 08/11/21 @ 20:44 by [facility]) Anesthesia Status post hernia repair (~1963) Visit Care Team Role Provider Type Jessie Hall MD Attending Provider Physician Family Provider Primary Care Provider Referring Provider Specialty: Family Practice Address: [address] [place] [address], [id number] Email: [email or web address] Physical Therapy Re-Evaluation PT-OP-A Visit Information Start: 03/02/23 11:26 Freq: Status: Active Protocol: Document 07/28/23 11:13 SAK (Rec: 07/28/23 11:37 [facility] [id number]) Out-Patient Physical Therapy Visit Information Visit Information Visit Type Re-Evaluation Visit Start Time 11:15 Visit Number 17 Evaluation Information Evaluation Date 03/02/23 PT-OP-B Current Condition Start: 03/02/23 11:26 Freq: Status: Active Protocol: Document 07/28/23 11:13 SAK (Rec: 07/28/23 11:37 SAK [id number]) Current Condition History of Current Condition Onset Date 30 years ago Current Complaints R shoulder History of Current Condition Pt thinks that he tore something in his shoulder 30 years ago and never fixed it. Pt reports that he fell on his R shoulder about a year ago and it has been painful since. Pt reports that his shoulder feels weak. Pt reports that he has an independent gym program, but not sure what to do to progress his shoulder strength and mobility without increasing pain. Pt likes to bow chen, though has difficulty using his bow currently. Prior Treatments and Tests Pt had an x-ray a few years ago, pt unsure of results PT-OP-C Subjective Start: 03/02/23 11:26 Freq: Status: Active Protocol: Document 07/28/23 11:13 SAK (Rec: 07/28/23 11:37 [facility] [id number]) OP-PT Subjective Patient Comments Patient Comments Using his arm a lot helping friend build a house, hasn't been doing much exercises, knows PT exercises would help if did more. Agreeable to discharge from PT today. Was able to use bow, not as previously but it was doable. PT-OP-K Range of Motion Start: 03/02/23 11:26 Freq: Status: Active Protocol: Document 03/02/23 12:20 AM (Rec: 03/02/23 18:03 AM [id number]) Shoulder Goniometric Range of Motion Shoulder Measured in Degrees Right Active Flexion 140 Abduction 155 Internal Rotation Behind Back (text) L1 Comments Aply ER: T1 Left Active Flexion 145 Abduction 155 Internal Rotation Behind Back (text) T9 Comments Aply ER: T5 PT-OP-L Special Tests Start: 03/02/23 11:26 Freq: Status: Active Protocol: Document 03/02/23 12:20 AM (Rec: 03/02/23 18:03 AM [id number]) Special Tests Shoulder Special Tests IR/Horizontal ADD Impingement Test Results + Empty Can Test Results negative on R PT-OP-M Strength Start: 03/02/23 11:26 Freq: Status: Active Protocol: Document 03/25/23 09:04 AM (Rec: 03/25/23 10:58 AM [id number]) Scapula Strength Scapula Manual Muscle Testing Right Comments MT: 4- on R LT: 3+ on R PT-OP-Q Treatments Start: 03/02/23 11:26 Freq: Status: Active Protocol: Document 07/28/23 11:13 SAK (Rec: 07/28/23 11:39 SAK [id number]) Manual Therapy Treatment Other Other Manual Treatments MMT and ROM testing R UE Self-Care/Home Management Treatment Education Patient Education Home Exercise Program,Pain Management,Safety PT-OP-R Modalities Start: 03/02/23 11:26 Freq: Status: Active Protocol: Document 04/11/23 11:19 NBM (Rec: 04/11/23 13:06 NBM [id number]) Hot Pack/Cold Pack Treatment Cold Pack Location right shoulder Patient Position Hooklying Treatment Duration (minutes) 10 Patient Tolerance Good PT-OP-T Assessment and Plan Start: 03/02/23 11:26 Freq: Status: Active Protocol: Document 07/28/23 11:13 SAK (Rec: 07/28/23 11:37 SAK [id number]) Physical Therapy Assessment Impairments Impairments Activity Tolerance,Functional Activities,Functional Mobility ,Pain,Posture,ROM,Sensation, Soft Tissue Mobility,Strength Goals Scapular strength Impairment Pt with scapular strength of 3 -/5 LT and 3+/5 MT strength Short Term Goal (STG) Pt with 3+/5 lower trap strength, 4-/5 middle trap strength. 03/25/23: Goal met STG Duration goal met Top And Trim Worker Goal (LTG) Pt with 4/5 middle trap and lower trap strength 04/07/23: assess next session 04/11/23: lower trap 4-/5, midle trap 4/5, good goal progress 05/12/22: lower trap 4-/5, middle trap 4+/5, goal progress 05/31/23: mid trap 4/5, lower trap 4-/5 07/28/23: all muscle groups 5/5 except mid trap 4/5, lower trap 4-/5 with review of ex and modification for standing bent over option of mid and lower trap ex with patient demonstrating good understanding LTG Duration goal mostly met Quick Dash Impairment Pt with Quick Dash score of 20 % Shelter Goal (LTG) Pt with Quick Dash score of 10 % 04/07/23: patient reporting progress, not filled out today 04/11/23: Quickdash score 12%, good goal progress 05/12/23: Quickdash score 11%, most painful with sleeping. Problem-solving today regarding bed positioning. 05/31/23: Quickdash 07/28/23: 11%, mostly met LTG Duration goal mostly met HEP Top And Trim Worker Goal (LTG) Pt independent with HEP. 04/07/23: good goal progress, continue to modify and progress. Reviewed current HEP today with some corrections and cues required for safe performance 05/12/23: Continue modifications and progressions of exercises . 07/28/23: goal met LTG Duration goal met [place] Impairment Pt unable to use bow without increase in shoulder pain. Top And Trim Worker Goal (LTG) Pt able to use bow with proper scapulohumeral mechanics without production of increased pain. 04/07/23: goal progress, still some pain though decreased with simulation using weight machine and theraband. Hasn 't tried yet with actual bow 04/11/23: Working on good bow mechanics including use of video with [employer]LES for shoulder protection and proper form. Needs continued work and cues 05/12/23: patien to bring bow next session for functional training. Have done further work using video of correct form to help patient decrease shoulder strain with this activity, requires cues for scapular activation. LTG Duration 07/18/23 Assessment Summary Assessment goals mostly met, dec compliance to HEP but patient independent and able to continue on his own. Demonstrated good understanding of modification of mid and lower trap ex for improved comfort and compliance. REady for discharge to independent HEP and self management after today's session. Physical Therapy Plan Frequency and Duration Frequency of Treatment 1 visit Duration of treatment (weeks) 2 Plan of Care Start Date 07/18/23 Plan of Care End Date 08/01/23 Discharge Physical Therapy Discharge Comments Goals mostly achieved, patient independent with HEP and self care. Next Visit Focus/Plan Next Visit Plan discharge after today's visit.
--- NOTE | 2023-07-28 11:40 | PT.OPPOC ---
Physical, Occupational & Speech Therapy At Current Diagnoses Pain in unspecified shoulder (07/28/23) Visit Care Team Role Provider Type Jessie Hall MD Attending Provider Physician Family Provider Primary Care Provider Referring Provider Specialty: Family Practice Address: [address] [place] [address], [id number] Email: [email or web address] Plan Of Care PT-OP-T Assessment and Plan Start: 03/02/23 11:26 Freq: Status: Active Protocol: Document 07/28/23 11:13 SAK (Rec: 07/28/23 11:37 SAK [id number]) Physical Therapy Assessment Impairments Impairments Activity Tolerance,Functional Activities,Functional Mobility ,Pain,Posture,ROM,Sensation, Soft Tissue Mobility,Strength Goals Scapular strength Impairment Pt with scapular strength of 3 -/5 LT and 3+/5 MT strength Short Term Goal (STG) Pt with 3+/5 lower trap strength, 4-/5 middle trap strength. 03/25/23: Goal met STG Duration goal met Alf Goal (LTG) Pt with 4/5 middle trap and lower trap strength 04/07/23: assess next session 04/11/23: lower trap 4-/5, midle trap 4/5, good goal progress 05/12/22: lower trap 4-/5, middle trap 4+/5, goal progress 05/31/23: mid trap 4/5, lower trap 4-/5 07/28/23: all muscle groups 5/5 except mid trap 4/5, lower trap 4-/5 with review of ex and modification for standing bent over option of mid and lower trap ex with patient demonstrating good understanding LTG Duration goal mostly met Quick Dash Impairment Pt with Quick Dash score of 20 % Ship Propeller Finisher Goal (LTG) Pt with Quick Dash score of 10 % 04/07/23: patient reporting progress, not filled out today 04/11/23: Quickdash score 12%, good goal progress 05/12/23: Quickdash score 11%, most painful with sleeping. Problem-solving today regarding bed positioning. 05/31/23: Quickdash 07/28/23: 11%, mostly met LTG Duration goal mostly met HEP Ship Propeller Finisher Goal (LTG) Pt independent with HEP. 04/07/23: good goal progress, continue to modify and progress. Reviewed current HEP today with some corrections and cues required for safe performance 05/12/23: Continue modifications and progressions of exercises . 07/28/23: goal met LTG Duration goal met [place] Impairment Pt unable to use bow without increase in shoulder pain. Alf Goal (LTG) Pt able to use bow with proper scapulohumeral mechanics without production of increased pain. 04/07/23: goal progress, still some pain though decreased with simulation using weight machine and theraband. Hasn 't tried yet with actual bow 04/11/23: Working on good bow mechanics including use of video with WOMENS HE[employer] NURSE PRACTITIONER for shoulder protection and proper form. Needs continued work and cues 05/12/23: patien to bring bow next session for functional training. Have done further work using video of correct form to help patient decrease shoulder strain with this activity, requires cues for scapular activation. LTG Duration 07/18/23 Assessment Summary Assessment goals mostly met, dec compliance to HEP but patient independent and able to continue on his own. Demonstrated good understanding of modification of mid and lower trap ex for improved comfort and compliance. REady for discharge to independent HEP and self management after today's session. Physical Therapy Plan Frequency and Duration Frequency of Treatment 1 visit Duration of treatment (weeks) 2 Plan of Care Start Date 07/18/23 Plan of Care End Date 08/01/23 Discharge Physical Therapy Discharge Comments Goals mostly achieved, patient independent with HEP and self care. Next Visit Focus/Plan Next Visit Plan discharge after today's visit. Plan of Care Dates Plan of Care Start Date 07/18/23 Plan of Care End Date 08/01/23 Electronically Signed by: Smita Anand, PT 07/28/23 [id number] If you are in agreement with this Plan of Care, please return a signed and dated copy. I have reviewed this Plan of Care and certify that the skilled therapy services above are required to meet the patient?s needs. Physician Signature Date Printed Name and Credentials Clinical Instructor Signature Printed Name and Credentials
== END 2023-08-05 14:37 | disposition home or self-care (01) ==
LOC: PHYS 11:15
PROVIDERS: Absent Provider Family Medicine; Family Provider Family Medicine; PCP Family Medicine; Referring Provider Family Medicine; Visit Provider Family Medicine
DX: M25.519 Pain in unspecified shoulder (principal)
CPT/HCPCS: 97110; 97140; 97161; 97530; 97535

== ENCOUNTER 2024-01-29 07:49 | Emergency (ER) | payer MEDICARE, OTHER, SELFPAY ==
--- NOTE | 2024-01-29 08:01 | DI.RAD.S_ITS ---
PROCEDURE: XR KNEE LT 3V INDICATIONS: pain, felt pop TECHNIQUE: 3 views of the knee were acquired. COMPARISON: None. FINDINGS: Bones: No fractures or dislocations. No suspicious bony lesions. Soft tissues: Small joint effusion. No suspicious soft tissue calcifications. IMPRESSION: Small effusion without fracture identified. Dictated by: Ponce Hernandez M.D. on 01/29/2024 at 7:45 Approved by: Ponce Hernandez M.D. on 01/29/2024 at 7:48
[2024-01-29 08:02] VITALS: BP 117/57; PULSE 76; RESP 16; TEMP 36.6; O2SAT 97; BMI 22.9
--- NOTE | 2024-01-29 08:59 | ED.EXTPRO ---
HPI - Extremity Problem General Chief complaint: Extremity Problem,Nontraumatic Stated complaint: L knee pain, would like xray Time Seen by Provider: 01/29/24 08:04 Source: patient Mode of arrival: Ambulatory Limitations: no limitations History of Present Illness HPI Narrative: Patient is a 68-year-old male who is here for evaluation of a left knee pain. He states that a couple weeks ago he was in a position where his knee was flexed. He states when he stood up he heard a pop. Has had pain in his knee since then. He states he feels like there was a pain deep down inside his knee. Occasionally gets some mechanical symptoms such as locking popping. He states he was discomfort with completely straightening his knee. No fevers. No skin changes over the area. No prior injuries. No prior surgeries. Has been taking ice and ibuprofen. Related Data Home Medications Medication Instructions Recorded Confirmed tamsulosin 0.4 mg capsule (Flomax) 0.4 mg PO DAILY 08/20/20 11/09/23 Previous Rx's Medication Instructions Recorded amoxicillin 500 mg capsule 500 mg PO BID #20 caps 11/09/23 Allergies Allergy/AdvReac Type Severity Reaction Status Date / Time No Known Drug Allergies Allergy Verified 11/09/23 07:44 Review of Systems Review of Systems Narrative: See see HPI Patient History Surgical History Anesthesia Status post hernia repair (~1962) Family History Grandfather Brain tumor Social History marital status: household members: spouse lives independently: Yes caregiver/support person: No housing: house pets and animals: No education level: master's degree occupational status: employed current occupational exposures/hazards: No special theresa needs: No travel history: over 6 months ago leisure activities: exercise, hunting and fishing seatbelt use: always helmet use: Yes water heater temp set < 120 deg: Yes working smoke detector in home: Yes fire extinguisher in home: Yes carbon monox detector in home: Yes firearms in home: Yes firearms unloaded and locked: No do you feel safe at home: Yes Smoking Status: Former smoker second hand exposure: No alcohol intake: current substance use type: does not use during the past year weight has: remained stable well-balanced diet: daily or most days daily servings fruits/ve-4 caffeine: Yes eating out: 1-3 times/week Type(s) of exercise: walking and resistance training frequency: 5-6 times per week duration: 15-30 minutes/day Smoking Status: Former smoker alcohol intake frequency: a few times a week Substance Use Type: does not use Exam Initial Vital Signs Initial Vital Signs: Vital Signs Temperature 97.8 F 01/29/24 08:02 Pulse Rate 76 01/29/24 08:02 Respiratory Rate 16 01/29/24 08:02 Blood Pressure 117/57 L 01/29/24 08:02 Pulse Oximetry 97 01/29/24 08:02 Oxygen Delivery Method Room Air 01/29/24 08:02 Skin General: no rashes or lesions noted Neuro General: patient alert and patient awake Extrem Other: Left knee: No hamstring tenderness. No tenderness over the quadriceps tendon or patellar tendon. Patient is ambulatory. Patient does have some limited range motion specifically in full extension. He can do a straight leg raise. His ACL MCL PCL and LCL intact with functional testing. Some discomfort along the joint line. Course Orders Ordered: ED Orders 01/29/24 08:01 XR knee LT 3V Stat Vital Signs Vital signs: Vital Signs - 8 hr 01/29/24 08:02 Temperature 97.8 F Pulse Rate 76 Respiratory Rate 16 Blood Pressure 117/57 L Pulse Oximetry 97 Oxygen Delivery Method Room Air MDM - Extremity (Nontraumatic) Imaging Data Extremity x-ray #1: Radiologist's Impression: PROCEDURE: XR KNEE LT 3V INDICATIONS: pain, felt pop TECHNIQUE: 3 views of the knee were acquired. COMPARISON: None. FINDINGS: Bones: No fractures or dislocations. No suspicious bony lesions. Soft tissues: Small joint effusion. No suspicious soft tissue calcifications. IMPRESSION: Small effusion without fracture identified. [facility] Narrative Medical decision making narrative: No fractures or dislocations noted on the x-rays. He does have a mild effusion. Low suspicion for septic joint. I suspect that he does have a meniscus injury just based on his symptoms. Discussed this with him. Advised that he contact his primary doctor and he was given information for follow-up with Orthopedic surgery as he may need an MRI. Discussed the use of ibuprofen and ice. He was given return precautions. He expressed understanding and agreement. Discharge Plan Departure Patient Disposition: Home Clinical Impression: Knee pain Instructions: How To Perform RICE (Rest, Ice, Compress, Elevate), DI for Knee Pain Activity Restrictions/Additional Instructions: Your x-ray today did not show any signs of a fracture. I suspect that you may have a meniscus injury. I recommend that tomorrow you contact your primary doctor and also of the orthopedic doctor at the number provided below for a follow-up. You can continue to use ice and also ibuprofen. Return to the emergency department for new symptoms. Prescriptions: No Action tamsulosin [Flomax] 0.4 mg capsule 0.4 mg PO DAILY amoxicillin 500 mg capsule 500 mg PO BID Qty: 20 0RF Referrals: Lokesh Ken MD [Physician] - Jessie Hall MD [Primary Care Provider] - Stand Alone Forms: Patient Portal/API
[2024-01-29 09:08] VITALS: RESP 17
== END 2024-01-29 09:09 | disposition home or self-care (01) ==
PROVIDERS: Emergency Provider Emergency Medicine; Family Provider Family Medicine; PCP Family Medicine
DX: M25.562 Pain in left knee (principal); M25.462 Effusion, left knee
CPT/HCPCS: 73562; 99283

== ENCOUNTER → 2024-02-08 07:09 | Outpatient (CLI) | payer MEDICARE, OTHER, SELFPAY ==
[2024-02-08 08:50] LABS: Prostate Specific Antigen 12.7 ng/mL (0.10-4.00)
== END ==
PROVIDERS: Family Provider Family Medicine; PCP Family Medicine; Referring Provider Urology; Visit Provider Urology
DX: R97.20 Elevated prostate specific antigen [PSA] (principal)
CPT/HCPCS: 36415; 84153

== ENCOUNTER → 2024-06-07 07:16 | Outpatient (CLI) | payer MEDICARE, OTHER, SELFPAY ==
--- NOTE | 2024-06-07 07:17 | DI.CT.S_ITS ---
PROCEDURE: CT LUNG LOW DOSE SCREENING INDICATIONS: Personal history of nicotine dependence TECHNIQUE: Noncontrast 2.0-2.5 mm thick sections acquired from the pulmonary apices to the posterior costophrenic angles. 7 mm thick axial MIP, and 5 mm coronal and sagittal reformats were then acquired. For radiation dose reduction, the following was used: automated exposure control, adjustment of mA and/or kV according to patient size. COMPARISON: [facility], CT, CT LOW DOSE LUNG CA SCREENING, 11/22/2022, 9:30. FINDINGS: Image quality: Diagnostic. Lower Neck: No enlarged lymph nodes. Thyroid: No thyroid nodules which require sonographic follow up, per consensus guidelines. Axillae: No enlarged lymph nodes. Chest Wall: Mild symmetric gynecomastia. Stable 3.2 centimeter right chest wall epidermal cystic lesion, probably an inclusion cyst. Bones: Unremarkable. Lungs and Pleura: No pneumothorax or pleural effusions. Moderate centrilobular emphysema. Juxtapleural nodules with smooth margins, favoring benign intrapulmonary lymph nodes. A few pulmonary micro nodules, index nodule measures 2 millimeters in the medial right middle lobe (series 3, image 230). Heart: Heart size is normal. No pericardial effusion. Two vessel coronary calcifications. Thoracic Vessels: The aorta and pulmonary arteries demonstrate normal size. Mediastinum and [place]: No enlarged lymph nodes. Esophagus: No wall thickening. No hiatal hernia. Upper Abdomen: Visualized upper abdomen solid organs and bowel loops appear normal. IMPRESSION: No suspicious pulmonary nodules. LUNG-RADS 2; continued annual screening, if eligible. Clinically Significant Non-pulmonary Findings: Marked coronary artery calcifications for age. Correlate with risk factors and advise counseling. Dictated by: Lorenzo Rosas M.D. on 06/07/2024 at 15:52 Approved by: Lorenzo Rosas M.D. on 06/07/2024 at 15:55
== END ==
PROVIDERS: Family Provider Family Medicine; PCP Family Medicine; Referring Provider Family Medicine; Visit Provider Family Medicine
DX: Z87.891 Personal history of nicotine dependence (principal); Z12.2 Encounter for screening for malignant neoplasm of respiratory organs; I25.10 Atherosclerotic heart disease of native coronary artery without angina pectoris
CPT/HCPCS: 71271

== ENCOUNTER → 2024-08-31 16:04 | Outpatient (CLI) | payer MEDICARE, OTHER, SELFPAY ==
[2024-08-31 17:35] LABS: Prostate Specific Antigen 15.1 ng/mL (0.10-4.00)
== END ==
PROVIDERS: Family Provider Family Medicine; PCP Family Medicine; Referring Provider Urology; Visit Provider Urology
DX: R97.20 Elevated prostate specific antigen [PSA] (principal)
CPT/HCPCS: 36415; 84153

== ENCOUNTER → 2024-09-24 07:24 | Outpatient (CLI) | payer MEDICARE, OTHER, SELFPAY ==
--- NOTE | 2024-09-24 08:06 | DI.MRI.S_ITS ---
PROCEDURE: MR PELVIC PROSTATE PROTOCOL INDICATIONS: Elevated PSA TECHNIQUE: Coronal HASTE, axial T1 FSE with fat saturation, 3-plane nonbreath-hold T2 FSE. After the administration of contrast, dynamic axial, delayed axial and coronal VIBE or 2-D FLASH with fat saturation through the pelvis. Diffusion weighted imaging and ADC was performed. COMPARISON: None. FINDINGS: Image quality: Diffusion weighted and dynamic contrast enhanced images are diagnostic. Prostate: Gland size is 5.1 x 5.9 x 6.5 cm; ellipsoid gland volume is 101.7 mL. Estimated PSA density is 0.148 Transitional zone heterogenous nodules are present, either well encapsulated or mostly encapsulated, compatible with PI-RADS 1 or 2 likely BPH nodules. Mildly T2 hypointense heterogenous striated appearance of the peripheral zone is commonly seen with current or prior prostatitis, PI-RADS 2. These findings can obscure small cancers. Genitourinary system: Trabeculated bladder likely from chronic obstruction. Bowel and peritoneum: No small bowel obstruction. No drainable ascites Nodes and vessels: No enlarged lymph nodes identified by size criteria in the pelvis. No aneurysmal artery identified. Soft tissues: No significant pelvic wall abnormality Bones: No aggressive appearing osseous abnormality. IMPRESSION: Marked prostatomegaly and BPH nodules. No PI-RADS 4 or 5 lesion to suggest clinically significant prostate adenocarcinoma. Seminal vesicles are clear. No extracapsular disease. Consider continued PSA and imaging surveillance, if clinically indicated. Trabeculated bladder, usually from chronic obstruction partially seen. Dictated by: Erasto Davis M.D. on 09/24/2024 at 9:36 Approved by: Erasto Davis M.D. on 09/24/2024 at 9:41
== END ==
PROVIDERS: Family Provider Family Medicine; PCP Family Medicine; Referring Provider Urology; Visit Provider Urology
DX: R97.20 Elevated prostate specific antigen [PSA] (principal); N40.0 Benign prostatic hyperplasia without lower urinary tract symptoms; N40.2 Nodular prostate without lower urinary tract symptoms; N32.89 Other specified disorders of bladder
CPT/HCPCS: 72197; A9579

== ENCOUNTER → 2025-03-29 15:47 | Outpatient (CLI) | payer MEDICARE, OTHER, SELFPAY ==
[2025-03-29 17:05] LABS: Prostate Specific Antigen 16.6 ng/mL (0.10-4.00)
== END ==
PROVIDERS: Family Provider Family Medicine; PCP Family Medicine; Referring Provider Family Medicine; Visit Provider Family Medicine
DX: R97.20 Elevated prostate specific antigen [PSA] (principal)
CPT/HCPCS: 36415; 84153